=== PATIENT | female | born 1990 ===

== ENCOUNTER 2024-12-30 11:39 | Outpatient (REF) | payer MEDICAID, OTHER, SELFPAY ==
--- OUTSIDE RECORDS SUMMARY | 2024-12-30 12:33 | XMS_ITS | Encounter Summary ---
Author Organization [employer] [facility] Address [address] [place] [address] Care Team Providers Care Referral And Information Aide Name Role Phone Unavailable Primary Care Provider Unavailabl e Encounter Details Date Type Department Care Team (Latest Contact Info) Description 12/30/2024 Travel Social History Tobacco Use Types Packs/Day Years Used Date Smoking Tobacco: Never Passive Smoke Exposure: Never Smokeless Tobacco: Never Comments Unknown Sex and Gender Information Value Date Recorded Sex Assigned at Female 10/11/2022 10:39 AM EDT Legal Sex Female 8:40 PM EDT Gender Identity Female 10/11/2022 10:39 AM EDT Sexual Orientation Straight 10/11/2022 10 :39 AM EDT documented as of this encounter Plan of Treatment Not on file documented as of this encounter Visit Diagnoses Not on filedocumented in this encounter
--- OUTSIDE RECORDS SUMMARY | 2024-12-30 12:33 | XMS_ITS | Clinical Summary ---
Author Organization [facility] Address [address] [place] [address] Phone Care Team Providers Care Senior National Account Manager Name Role Phone Unavailable Primary Care Provider Unavailabl e Social History Tobacco Use Types Packs/Day Years Used Date Smoking Tobacco: Never Assessed Comments Unknown Sex and Gender Information Value Date Recorded Sex Assigned at Not on file Legal Sex Female 1:56 PM EST Gender Identity Not on file Sexual Orientation Not on file Plan of Treatment Not on file Medical Devices Not on file Additional Source Comments The information contained in this document represents components of the legal health record. It is not the complete legal health record.[facility]
[2024-12-30 13:24] LABS: Hematocrit 21.3 % (37.0-47.0); Imm Gran Abs Auto 0.02 X10*3/uL (0.00-0.03); Imm Gran Pct Auto 0.3 % (0.0-0.4); Lymphocytes Absolute Auto 1.6 X10*3/uL (1.2-4.9); MANUAL DIFF FLAG SCAN; Mean Corpuscular HGB Conc 25.4 g/dl (31.0-35.0); Mean Corpuscular Hemoglobin 14.1 pg (27.0-33.0); NRBC Abs Auto 0.020 X10*3/uL (0.0-0.012); NRBC Pct Auto 0.3 /100WBC (0.0-0.2); PLT CLUMP 1; Red Blood Count 3.83 X10*6/uL (4.20-5.50); SCAN SMEAR FLAG 1
[2024-12-30 13:30] LABS: Hemoglobin 5.4 g/dl (12.0-16.0); Mean Corpuscular Volume 55.6 fL (80.0-98.0)
[2024-12-30 13:44] LABS: Platelet Count 386 X10*3/uL (160-400); White Blood Count 6.7 X10*3/uL (4.8-10.8)
[2024-12-30 14:23] LABS: Alanine Aminotransferase 11 U/L (0-31); Albumin Level 4.3 g/dL (3.5-5.0); Alkaline Phosphatase 101 U/L (39-117); Amylase 26 U/L (28-100); Anion Gap 10 (12-20); Aspartate Amino Transferase 16 U/L (5-31); Blood Urea Nitrogen 5 mg/dL (9-16); Calcium 10.2 mg/dL (8.4-10.2); Carbon Dioxide 22 mmol/L (22-29); Chloride 109 mmol/L (96-108); Estimated Glomerular Filt Rate > 60; Lipase 19 U/L (8-78); Potassium 4.2 mmol/L (3.3-5.1); Sodium 137 mmol/L (135-145); Total Protein 7.2 g/dL (6.5-8.0)
== END 2024-12-30 11:40 | disposition home or self-care (01) ==
LOC: HO.HHCL 11:39
PROVIDERS: PCP Family Medicine; Visit Provider Family Medicine
DX: R19.01 Right upper quadrant abdominal swelling, mass and lump (principal); D64.9 Anemia, unspecified
CPT/HCPCS: 36415; 80048; 80076; 82150; 83690; 85025

== ENCOUNTER 2024-12-30 13:58 | Outpatient (REF) | payer MEDICAID, OTHER, SELFPAY ==
--- NOTE | ~2024-12-30 | US_ITS ---
EXAMINATION: US ABDOMEN LIMITED HISTORY: 5cm firm, nonmobile, painful mass in lateral RUQ TECHNIQUE: Real-time grayscale ultrasound imaging of the right upper quadrant was performed and images were reviewed. COMPARISON: There are no prior studies available for comparison. FINDINGS: Sonographic examination of the right lateral abdomen was performed. No abdominal wall mass is identified. Incidental note is made of cholelithiasis. US/US abdomen limited IMPRESSION: No sonographic abnormality is seen to correspond to a right abdominal wall mass. Electronically signed by: Mike Moreno MD 12/30/2024 02:50 PM EDT
== END 2024-12-30 13:59 | disposition home or self-care (01) ==
LOC: HO.US 13:58
PROVIDERS: Visit Provider Family Medicine
DX: R19.01 Right upper quadrant abdominal swelling, mass and lump (principal); D64.9 Anemia, unspecified
CPT/HCPCS: 76705

== ENCOUNTER → 2024-12-30 14:06 | Outpatient (BNV) | payer MEDICAID, SELFPAY | PROVIDERS: Visit Provider Radiology Diagnostic Radiology | DX: R10.11 Right upper quadrant pain (principal) | CPT/HCPCS: 76705 ==

== ENCOUNTER 2024-12-30 14:26 | Emergency (ER) | payer MEDICAID, OTHER, SELFPAY ==
[2024-12-30] VITALS (11 sets, daily range): BP systolic 100–119; BP diastolic 45–70; PULSE 69–81; RESP 10–20; TEMP 36.7–37.2; O2SAT 99–100; BMI 28.3
--- NOTE | 2024-12-30 14:43 | ED_ITS ---
HPI - Recheck/Abnormal Lab/Rx General Chief Complaint: General Medical Stated Complaint: Critical lab result, sent by Time Seen by Provider: 12/30/24 16:34 Source: patient Mode of arrival: ambulatory Limitations: no limitations History of Present Illness ED Provider: HPI narrative: Patient has been feeling weak and dizzy short of breath on exertion fatigue for last few months was [facility] today noticed to have hemoglobin of 5.4 had a near-syncope episode does have menstruation sometimes heavy lasting for 2- 3 days no melena no ulcers Related Data Previous Rx's ?Medication ?Instructions ?Recorded docusate sodium 100 mg capsule 100 mg PO DAILY PRN con stipation 12/31/24 (Col-Rite) #30 caps ferrous sulfate 325 mg (65 mg 325 mg PO BID #60 tabs 0 12/31/24 iron) tablet Allergies Allergy/AdvReac Type Severity Reaction Status Date / Time No Known Allergies Allergy Verified 12/30/24 14:39 Review of Systems 2 Review of Systems: Yes all other systems are reviewed and are negative Physical Exam 2 Vital Signs: Vital Signs: Last Vital Signs Temp 98.2 F 12/31/24 00:36 Pulse 73 12/31/24 00:36 Resp 21 H 12/31/24 00:36 BP 102/50 L 12/31/24 00:36 Pulse Ox 100 12/31/24 00:36 O2 Del Method Room Air 12/31/24 00:36 BMI result Body Mass Index 28.3 Appearance: Alert. Oriented X3. No acute distress. Eyes: Pallor+++ or icterus ENT: Pharynx normal Oral Mucosa moist tympanic membrane intact no erythema, Neck: Normal inspection. Neck supple. CVS: Normal heart rate and rhythm. Pulses normal. Respiratory: No respiratory distress. Equal air entry bilateral, no wheezing/rales/rhonchi Abd: soft, not tender Skin: Skin warm and dry. Normal skin color. Normal skin turgor. Extremities: No lower extremity edema, no calf tenderness Neuro: Oriented X 3. Course Course Course Narrative: This is a Rapid Medical Examination (RME) performed by Ricky Ragsdale PA-C in triage. Full HPI, ROS, assessment and treatment plan per primary provider in the Main ED. 34 yo Salvadorean speaking female presents to the ER from Ultrasound Department for evaluation of abnormal labs done on outpatient blood work done today at [facility]. She initially went there for RUQ pain x3 days, headaches and dizziness for the last 1 month. she has passed out 3 times in the last 1 month, last was 9 days ago. Also has had unintentional weight loss of 30+lbs, no appetite and forgets to eat. sent to U/S for abd U/S when labs came back with H/H 5.4/21.3. hx anemia but has never required transfusion, was when she was . LMP 716 and was light, only lasting 2 days. no history of heavy menstrual cycles, melena or hematochezia. appears pale. +RUQ tenderness on exam. Plan: repeat labs, check iron panel, T&S. abd U/S completed, will get radiology to read today Medications Administered Discontinued Medications Generic Name Dose Route Start Last Admin Trade Name Caron PRN Reason Stop Dose Admin Iron Dextran 25 mg/ Sodium 50.5 mls @ 202 mls/hr 12/30/24 16:56 12/30/24 18:44 Chloride IV 12/30/24 16:57 Infused ONCE ONE Infusion Medical Decision Making Medical Decision Making [facility] Narrative: Patient has significant anemia with iron-deficiency likely heavy menstruation cause for blood loss was given 2 units of PRBC and iron dextran hemoglobin improved to 7.5 patient is feeling much better will discharge patient home advised to follow up with PCP as scheduled for further evaluation Lab Data [facility] Lab Attestation statement: I reviewed the patient's lab results. 12/30/24 23:24 12/30/24 15:02 Labs: Lab Results 12/30/24 12/30/24 12/30/24 Range/Units 15:02 18:35 23:24 WBC 6.9 (4.8-10.8) X10*3/uL RBC 3.58 L (4.20-5.50) X10*6/uL Hgb 5.1 L* 7.5 L D (12.0-16.0) g/dl Hct 19.5 L* 25.7 L D (37.0-47.0) % MCV 54.5 L (80.0-98.0) fL MCH 14.2 L (27.0-33.0) pg MCHC 26.2 L (31.0-35.0) g/dl RDW 23.2 H (11.0-16.0) % Plt Count 322 (160-400) X10*3/uL MPV Not Reportable Immature Gran % (Auto) 0.3 (0.0-0.4) % Neut % (Auto) 57.2 (45-73) % Lymph % (Auto) 30.7 (20-40) % [place] % (Auto) 9.8 (2-11) % Eos % (Auto) 1.6 (0-4) % Baso % (Auto) 0.4 (0-2) % Lymph # (Auto) 2.1 (1.2-4.9) X10*3/uL [place] # (Auto) 0.7 (0.1-1.2) X10*3/uL Eos # (Auto) 0.1 (0.0-0.4) X10*3/uL Baso # (Auto) 0.0 (0.0-0.2) X10*3/uL Abs Immat Gran (auto) 0.02 (0.00-0.03) X10*3/uL Absolute Neuts (auto) 3.9 (2.0-8.3) x10*3/uL Absolute Nucleated RBC 0.020 H (0.0-0.012) X10*3/uL Nucleated RBC % (auto) 0.3 H (0.0-0.2) /100WBC Sodium 137 (135-145) mmol/L Potassium 3.8 (3.3-5.1) mmol/L Chloride 108 (96-108) mmol/L Carbon Dioxide 24 (22-29) mmol/L Anion Gap 9 L (12-20) BUN 5 L (9-16) mg/dL Creatinine 0.54 (0.5-1.4) mg/dL Estim Creat Clear Calc 145.4 Estimated GFR > 60 Random Glucose 87 (60-115) mg/dL Calcium 10.2 (8.4-10.2) mg/dL Magnesium 2.1 (1.6-2.6) mg/dL Iron 7 L (30-160) mcg/dL TIBC 349 (228-428) mcg/dL % Saturation 2 L (15-50) % Unsat Iron Binding 342 ug/dL Total Bilirubin 0.6 (0.0-1.0) mg/dL Direct Bilirubin 0.2 (0.0-0.5) mg/dL AST 15 (5-31) U/L ALT 10 (0-31) U/L Alkaline Phosphatase 102 (39-117) U/L Total Protein 7.1 (6.5-8.0) g/dL Albumin 4.2 (3.5-5.0) g/dL Urine Color Yellow Urine Appearance Clear Urine pH 7.5 (5.0-9.0) Ur Specific [place] <= 1.005 (1.005-1.025) Urine Protein Negative (Neg-Trace) mg/dL Urine Glucose (UA) Negative (Negative) mg/dL Urine Ketones Negative (Negative) mg/dL Urine Blood Negative (Negative) Urine Nitrite Negative (Negative) Ur Leukocyte Esterase Large (3+) H (Negative) Urine RBC 0-2 (0-2) /HPF Urine WBC >50 H (0-5) /HPF Ur Squamous Epith Cells 6-10 (0-2) /HPF Urine Bacteria Trace (None Seen) Hyaline Casts 0-2 (0-2) /LPF Urine Test NEGATIVE (NEGATIVE) Blood Type A Positive Antibody Screen NEGATIVE Crossmatch See Detail Discharge Plan Discharge Clinical Impression: Iron (Fe) deficiency anemia Patient Disposition: Home, Self-Care Instructions: Iron Rich Diet (ED), Anemia (ED) Additional Instructions: Take start start taking iron pills as prescribed See your PCP as scheduled for further management Prescriptions: New ferrous sulfate 325 mg (65 mg iron) tablet 325 mg PO BID Qty: 60 0RF docusate sodium [Col-Rite] 100 mg capsule 100 mg PO DAILY PRN (Reason: constipation) Qty: 30 0RF Interventions: ED Discharge Assessment Last Done: 12/31/24 00:36 Discharge Date/Time: 12/31/24 00:36 Print Language: Salvadorean
--- NOTE | 2024-12-30 14:51 | ECG_ITS ---
Test Reason : SYNCOPE Blood Pressure : */* mmHG Vent. Rate : 67 BPM Atrial Rate : 67 BPM P-R Int : 144 ms QRS Dur : 84 ms QT Int : 366 ms P-R-T Axes : 64 44 25 degrees QTcB Int : 386 ms Normal sinus rhythm Normal ECG No previous ECGs available Referred By: Annabella Ragsdale Electronically Signed By: SARA GARCIA
[2024-12-30 15:11] LABS: Imm Gran Abs Auto 0.02 X10*3/uL (0.00-0.03); Imm Gran Pct Auto 0.3 % (0.0-0.4); Lymphocytes Absolute Auto 2.1 X10*3/uL (1.2-4.9); MANUAL DIFF FLAG SCAN; Mean Corpuscular HGB Conc 26.2 g/dl (31.0-35.0); Mean Corpuscular Hemoglobin 14.2 pg (27.0-33.0); NRBC Abs Auto 0.020 X10*3/uL (0.0-0.012); NRBC Pct Auto 0.3 /100WBC (0.0-0.2); Platelet Count 322 X10*3/uL (160-400); Red Blood Count 3.58 X10*6/uL (4.20-5.50); SCAN SMEAR FLAG 1; White Blood Count 6.9 X10*3/uL (4.8-10.8)
[2024-12-30 15:16] LABS: Mean Corpuscular Volume 54.5 fL (80.0-98.0)
[2024-12-30 15:18] LABS: Hemoglobin 5.1 g/dl (12.0-16.0); PLT ABN DIST 1
[2024-12-30 15:19] LABS: Hematocrit 19.5 % (37.0-47.0)
[2024-12-30 15:24] LABS: Alanine Aminotransferase 10 U/L (0-31); Albumin Level 4.2 g/dL (3.5-5.0); Alkaline Phosphatase 102 U/L (39-117); Anion Gap 9 (12-20); Aspartate Amino Transferase 15 U/L (5-31); Blood Urea Nitrogen 5 mg/dL (9-16); Calcium 10.2 mg/dL (8.4-10.2); Carbon Dioxide 24 mmol/L (22-29); Chloride 108 mmol/L (96-108); Creatinine Clr Calc Pharmacy 145.4; Estimated Glomerular Filt Rate > 60; Iron 7 mcg/dL (30-160); Magnesium 2.1 mg/dL (1.6-2.6); Percent Iron Saturation 2 % (15-50); Potassium 3.8 mmol/L (3.3-5.1); Sodium 137 mmol/L (135-145); Total Iron Binding Capacity 349 mcg/dL (228-428); Total Protein 7.1 g/dL (6.5-8.0); Unsaturated Iron Binding 342 ug/dL
[2024-12-30] MEDS: Iron Dextran Complex 25 MG in 0.9 % Sodium Chloride 50 ML 202 MG IV (18:00)
[2024-12-30 18:42] LABS: Appearance Urine Clear; Glucose Urine UA Negative (Negative); PH 7.5 (5.0-9.0); Specific Gravity - Urine <= 1.005 (1.005-1.025); UMIC TRIGGER UACC YES
[2024-12-30 18:43] LABS: UPreg QC Valid YES
[2024-12-30 19:02] LABS: UACC Culture Trigger YES
[2024-12-30 23:29] LABS: Hematocrit 25.7 % (37.0-47.0)
[2024-12-30 23:31] LABS: Hemoglobin 7.5 g/dl (12.0-16.0)
[2024-12-31 00:27] VITALS: BP 102/50; PULSE 73; RESP 21; TEMP 36.8; O2SAT 100
[2024-12-31 00:36] VITALS: BP 102/50; PULSE 73; RESP 21; TEMP 36.8; O2SAT 100
== END 2024-12-31 00:36 | disposition home or self-care (01) ==
PROVIDERS: Physician Assistant; Emergency Provider Internal Medicine
DX: D50.9 Iron deficiency anemia, unspecified (principal); R06.02 Shortness of breath; R55 Syncope and collapse
CPT/HCPCS: 36415; 36430; 80048; 80076; 81001; 81025; 83540; 83735; 85014; 85018; 85025; 86850; 86900; 86901; 86923; 87086; 93005; 96365; 99285; J1750; P9016

== ENCOUNTER → 2024-12-30 14:51 | Outpatient (BNV) | payer MEDICAID, SELFPAY | PROVIDERS: Emergency Provider Internal Medicine; Visit Provider Internal Medicine | DX: R55 Syncope and collapse (principal) | CPT/HCPCS: 93010 ==

== ENCOUNTER 2025-01-09 14:14 | Outpatient (REF) | payer MEDICAID, OTHER, SELFPAY ==
--- NOTE | ~2025-01-09 | CT_ITS ---
CLINICAL HISTORY: PAPABLE MASS ON RUQ W SEVERE ANEMIA CT abdomen and pelvis with contrast Comparison: None provided Findings: No consolidation or effusion. Couple gallstones are seen measuring up to 1.6 cm in a normal-sized gallbladder. The liver, pancreas, spleen, bilateral adrenal glands, and bilateral kidneys appear within normal limits. There is no evidence of bowel obstruction. The appendix appears normal. There is no pneumoperitoneum or ascites. The urinary bladder appears normal. There is no adenopathy. Trace ascites is seen in the cul-de-sac. No abdominal wall mass is identified. Left L5 pars defect is seen without spondylolisthesis. No acute osseous abnormality is identified. No aggressive lytic or blastic lesion seen. 11.3 x 5.4 x 4.2 cm intramuscular lipoma containing some internal striations is seen in the right anterior thigh. IMPRESSION: 1. Cholelithiasis. 2. Trace ascites in the cul-de-sac. 3. Left L5 pars defect without spondylolisthesis. 4. 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 Low-grade liposarcoma can not be excluded. This document has been electronically signed by: Aliya Guerrero on 01/12/2025 09:12:48
--- OUTSIDE RECORDS SUMMARY | 2025-01-09 14:16 | XMS_ITS | Encounter Summary ---
Author Organization [employer] Address [address] [place] [address] Care Team Providers Care Tugboat Dispatcher Name Role Phone Unavailable Primary Care Provider Unavailabl e Reason for Visit * Reason Onset Date Comments Appointment Confirmation 12/30/2024 Encounter Details Date Type Department Care Team ([facility] st Contact Info) Description 12/30/2024 Telephone [facility] [address] [place], [place] [id number] Vashti Arroyo MD [address] [place], [place] [phone] Appointment Confirmation Social History Tobacco Use Types Packs/Day Years Used Date Smoking Tobacco: Never Passive Smoke Exposure: Never Smokeless Tobacco: Never Comments Unknown Sex and Gender Information Value Date Recorded Sex Assigned at Female 10/11/2022 10:39 AM EDT Legal Sex Female 8:40 PM EDT Gender Identity Female 10/11/2022 10:39 AM EDT Sexual Orientation Straight 10/11/2022 10 :39 AM EDT documented as of this encounter Miscellaneous Notes * Telephone Encounter - Oriana Jones RN - 01/07/2025 10:06 AM EDT TC placed to the pt with a spanish interpreter to inform of pt two appointments upcoming on SundayJanuary 09. The pt was first informed of SURVEYING TEACHER appt scheduled with Chandu Carlos on the [facility] for [address] STAT CT scan scheduled on the same day 01/09 at 230 at [facility]. Pt was informed of theimportance of attending both appt and that the result of the CT scan will be followed up on CASH. Pt stated understanding and had no further questions at this time. * Telephone Encounter - Oriana Jones RN - 01/01/2025 11:35 AM EDT TC placed to the pt with [facility] official court interpreter #[id number] to inform of the instructions below. Pt was instructed to make sure pt phone is available and answers all incoming calls as the provider ordered a STATCT scan and referred the pt to both hematology and GI due to reported symptoms at the [facility] on 12/30. RN stressed the importance of following up and attending all these appointments and to call back the office if she does not hear back in the next two weeks. The pt was also reminded up SURVEYING TEACHER appt with on 01/09 with Chandu Carlos at 1015. Provider Message And left message. I am trying to set up a stat CT scan but need to know she can make it and will answer her phone for the appointment. Please try to call again to Please let her know of 1) new PCP apt 2) I referred her to a blood doctor and stomach doctor because I am worried about her low blood level and stomach pain. These are very important and will be in [place]. 3) I ordered a CT scan of her abdomen. If we can make it an urgent CT, will she be able to answer her phone so we can get her in in the next few days? Please send her a letter to call us CASH and keep trying her phone a few times a day. Thank you. * Telephone Encounter - Vashti Arroyo MD - 01/01/2025 10:47 AM EDT I called pt again 01/01/2510:47 AM And left message. I am trying to set up a stat CT scan but need to know she can make it and will answer her phone for the appointment. Please try to call again to Please let her know of 1) new PCP apt 2) I referred her to a blood doctor and stomach doctor because I am worried about her low blood level and stomach pain. These are very important and will be in [place]. 3) I ordered a CT scan of her abdomen. If we can make it an urgent CT, will she be able to answer her phone so we can get her in in the next few days? Please send her a letter to call us CASH and keep trying her phone a few times a day. Thank you. * Telephone Encounter - Vashti Hull RN - 12/31/2024 2:02 PM EDT TC to pt to inform of orders below and new patient appt. Pt verbalized understanding of informationand agreement with plan. * Telephone Encounter - Vashti Hull RN - 12/31/2024 10:19 AM EDT TC to pt to inform of provider message. BLS educational sign language interpreter services utilized. No answer. VM left instructing pt to return call to office. * Telephone Encounter - Vashti Arroyo MD - 12/30/2024 4:45 PM EDT Please call for status check on 12/31/24. Please let her know of 1) new PCP apt 2) I referred her to a blood doctor and stomach doctor because I am worried about her low blood level and stomach pain 3) I ordered a CT scan of her abdomen. Please call us if she does not hear from them in the next week about appointment. Thank you. documented in this encounter Plan of Treatment Not on file documented as of this encounter Visit Diagnoses Not on filedocumented in this encounter
--- OUTSIDE RECORDS SUMMARY | 2025-01-09 14:16 | XMS_ITS | Clinical Summary ---
Author Organization [facility] Address [address] [place] [address] Phone Care Team Providers Care Building Insulation Supervisor Name Role Phone Unavailable Primary Care Provider [...] It is not the complete legal health record.[facility]
[2025-01-09] MEDS: iohexoL 350 MG/ML 100 ML INFUS..BTL IV (17:42)
[2025-01-09] MEDS: Barium Sulfate Oral (Berry) 450 ML ORAL.SUSP PO (17:44)
== END 2025-01-09 14:15 | disposition home or self-care (01) ==
LOC: HO.CT 14:14
PROVIDERS: Visit Provider Family Medicine
DX: R19.01 Right upper quadrant abdominal swelling, mass and lump (principal); D64.9 Anemia, unspecified; R63.4 Abnormal weight loss
CPT/HCPCS: 74177; Q9967

== ENCOUNTER → 2025-01-09 16:57 | Outpatient (BNV) | payer SELFPAY | PROVIDERS: Visit Provider Radiology Vascular & Interventional Radiology | DX: R19.01 Right upper quadrant abdominal swelling, mass and lump (principal); D64.9 Anemia, unspecified | CPT/HCPCS: 74177 ==

== ENCOUNTER 2025-04-15 08:49 | Outpatient (AMB) | payer OTHER, SELFPAY ==
--- NOTE | 2025-04-15 08:51 | A.OFFVIS_ITS ---
Vital Signs 04/15/25 08:57 Height 5 ft 2 in Weight 157 lb BMI 28.7 BP 108/52 L Blood Pressure Location Lt brachial Position Sitting Pulse 75 Intake Visit Reasons: malignant neoplasm ascending colon Intake Note: Patient presents for an assessment for malignant neoplasm ascending colon. Pt c/o; pain. 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 She had a colonoscopy done [facility] last January, and this showed a large fungating mass in the proximal ascending colon. This was an adenocarcinoma. She also had a mass in the splenic flexure. 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 They were told that she could not be seen in [facility]. She had been therefore having progressive pain on the right side of her abdomen along with weight loss. She has had difficulty ambulating now. She has had poor oral intake. According to her significant other, she has lost about 20 lb of weight the past 2 months. She denies any significant medical problems otherwise. She has had C-sections x2. She has a maternal aunt who was diagnosed to have colon cancer at age of 47. I had seen her in the office earlier today. She appeared to be in pain and very weak so I brought her to the emergency room. [facility] Medical History Colon cancer Surgical History History of esophagogastroduodenoscopy (EGD) H/O colonoscopy Social History Alcohol intake: never Patient Tobacco Use Status: Never used Tobacco Review of Systems Const Reports anorexia, Denies chills, Denies fever(s), Reports weakness and Reports weight loss Card Reports chest pain and Reports chest pain with activity Resp Reports cough GI Reports abdominal pain and Reports constipation Neuro Reports weakness Physical Exam Vital Signs: Last Vital Signs Pulse 75 04/15/25 08:57 BP 108/52 L 04/15/25 08:57 BMI result Body Mass Index 28.7 Const Other: Appears weak General: comfortable and no acute distress Resp Effort & Inspection: normal respiratory effort Cardio Rate: regular rate GI Palpation (GI): Soft to palpation and Tenderness to palpation present (GI) (tender on the entire right side with question of a vague mass) Assessment & Plan Assessment & Plan (1) Colon cancer: Code(s): C18.9 - Malignant neoplasm of colon, unspecified Category: Medical Plan: She had a colonoscopy done in January, in [facility] showing this large fungating mass in the proximal right colon. Biopsies of this showed an invasive adenocarcinoma. There was also note of a large mass in the splenic flexure was tubulovillous on biopsy. She has been lost to follow up because of what her significant other described as health insurance issues. They were told that she could not be seen in [facility] anymore after colonoscopy. They were also told that he could not be seen at [facility]. [facility] for the past 2 months and the pain has been progressive on the right side of her abdomen. She also has been progressively getting weaker. Has had difficulty ambulating now because of weakness and pain She has had chronic constipation. In view of her ongoing progressive issues, I brought her to the emergency room to be worked up. The CAT scan in the ED shows a very large mass encompassing most of the right colon all the way to the hepatic flexure. Furthermore, there seems to be infiltrating posteriorly into the retroperitoneum as well as the mesentery. In view of the anticipated extensive dissection to achieve R0 margins, I have recommended for her to a tertiary center. She also has a 2nd lesion in the splenic flexure says she we will need to have this resected as well. I discussed this with the significant other at bedside. I told him that I would recommend them being transferred today as they have already have been lost to follow up in many hospitals. She had been seen by multiple doctors already in the past without any definitive plan. I spent an hour evaluating this patient and coordinating for her care in the emergency room. Coding Level of Care Code New Pt Level 4 (62560) Diagnoses Colon cancer C18.9
[2025-04-15 08:57] VITALS: BP 108/52; PULSE 75; BMI 28.7
== END 2025-04-15 09:38 | disposition home or self-care (01) ==
LOC: HO.HGS 08:50
PROVIDERS: Visit Provider Surgery
DX: C18.9 Malignant neoplasm of colon, unspecified (principal)
CPT/HCPCS: 99204

== ENCOUNTER 2025-04-15 09:36 | Emergency (ER) | payer OTHER, SELFPAY ==
--- NOTE | ~2025-04-15 | CT_ITS ---
EXAMINATION: CT ABDOMEN PELVIS WITH IV CONTRAST HISTORY: Abdominal pain, history of colon cancer COMPARISON: Comparison is made with the prior examination dated 01/09/2025. TECHNIQUE: CT scan of the abdomen and pelvis was performed following administration of 85 mL Omnipaque 350 using standard departmental protocol. Coronal and sagittal reformatted images were generated and reviewed. Oral contrast material was not administered at the request of the referring physician. This CT exam was performed with one or more of the following dose reduction techniques: automated exposure control, adjustment of the mA and/or kV according to patient size, use of iterative reconstruction technique. DLP: 535 mGy-cm FINDINGS: LOWER CHEST: The visualized lung bases are clear. There is no pleural effusion. CARDIOVASCULATURE: The heart is normal in size. There is no pericardial effusion. LIVER: The liver is normal in size and contour. No liver mass is identified. The hepatic and portal veins are patent. GALLBLADDER / BILE DUCTS: There is cholelithiasis. There is no intra or extrahepatic biliary ductal dilatation. SPLEEN: The spleen is normal in size. No focal splenic lesion is identified. PANCREAS: The pancreas is unremarkable in appearance. ADRENAL GLANDS: Within normal limits. KIDNEYS/RETROPERITONEUM: No renal calculi are identified. There is no hydronephrosis. There are probable subcentimeter cyst at the lower pole of the right kidney. LYMPH NODES: No abdominal or pelvic lymphadenopathy. VASCULATURE: The abdominal aorta is normal in caliber. MESENTERY/PERITONEUM: There is a small amount of free fluid in the cul-de-sac. No masses. There is no free intraperitoneal gas. STOMACH: The stomach is collapsed, limiting evaluation. SMALL BOWEL: The small bowel is normal in caliber. COLON: There is a heterogeneous soft tissue mass of the ascending colon extending from just above the cecum to the hepatic flexure. There is infiltration and spiculation of the mesenteric fat surrounding the ascending colon, suggestive of transmural spread. There are enlarged pericolonic lymph nodes in this region measuring up to 9 mm. APPENDIX: Normal. URINARY BLADDER/PELVIC ORGANS: The urinary bladder is unremarkable. The uterus and ovaries are unremarkable. BONES / SOFT TISSUES: Again seen is a lipomatous mass of the anterior proximal right thigh. CT/CT abdomen pelvis w IV con IMPRESSION: Heterogeneous soft tissue mass of the ascending colon extending from just above the cecum to the hepatic flexure, consistent with the patient's known mass. Infiltration and spiculation of the surrounding mesenteric fat is suggestive of transmural spread of disease. There are associated enlarged pericolonic lymph nodes. Electronically signed by: Mike Moreno MD 04/15/2025 11:08 AM LYUBOV
[2025-04-15 09:40] VITALS: BP 109/55; PULSE 74; RESP 18; TEMP 36.9; O2SAT 100; BMI 26.1
[2025-04-15 09:55] LABS: MANUAL DIFF FLAG NO
[2025-04-15 09:57] LABS: Hematocrit 26.6 % (37.0-47.0); Hemoglobin 7.5 g/dl (12.0-16.0); Imm Gran Abs Auto 0.02 X10*3/uL (0.00-0.03); Imm Gran Pct Auto 0.3 % (0.0-0.4); Lymphocytes Absolute Auto 1.5 X10*3/uL (1.2-4.9); Mean Corpuscular HGB Conc 28.2 g/dl (31.0-35.0); Mean Corpuscular Hemoglobin 19.4 pg (27.0-33.0); Mean Corpuscular Volume 68.7 fL (80.0-98.0); NRBC Abs Auto 0.000 X10*3/uL (0.0-0.012); NRBC Pct Auto 0.0 /100WBC (0.0-0.2); Platelet Count 479 X10*3/uL (160-400); Red Blood Count 3.87 X10*6/uL (4.20-5.50); White Blood Count 7.0 X10*3/uL (4.8-10.8)
[2025-04-15 10:00] VITALS: BP 110/62; PULSE 72; RESP 20; O2SAT 97
[2025-04-15 10:18] LABS: Alanine Aminotransferase 8 U/L (0-31); Albumin Level 3.6 g/dL (3.5-5.0); Alkaline Phosphatase 106 U/L (39-117); Anion Gap 9 (12-20); Aspartate Amino Transferase 16 U/L (5-31); Blood Urea Nitrogen 4 mg/dL (9-16); Calcium 10.1 mg/dL (8.4-10.2); Carbon Dioxide 25 mmol/L (22-29); Chloride 108 mmol/L (96-108); Creatinine Clr Calc Pharmacy 149.4; Estimated Glomerular Filt Rate > 60; Lipase 21 U/L (8-78); Potassium 4.0 mmol/L (3.3-5.1); Sodium 138 mmol/L (135-145); Total Protein 6.3 g/dL (6.5-8.0)
[2025-04-15] MEDS: iohexoL 350 MG/ML 100 ML INFUS..BTL IV (10:44)
[2025-04-15 11:34] LABS: Appearance Urine Clear; Glucose Urine UA Negative (Negative); PH 5.5 (5.0-9.0); Specific Gravity - Urine >= 1.030 (1.005-1.025)
--- NOTE | 2025-04-15 12:00 | ED.ABDPAIN ---
HPI - Abdominal Pain General Chief Complaint: Abdominal Pain Stated Complaint: sent here from med office Time Seen by Provider: 04/15/25 09:58 Source: patient and family Mode of arrival: ambulatory Limitations: no limitations History of Present Illness ED Provider: DR. Thornton HPI narrative: 35-year-old female presented by wheelchair from Dr. Cruz office for further evaluation of abdominal pain and known adenocarcinoma of colon cancer with possible transfer to [place]. Patient was diagnosed via colonoscopy with adenocarcinoma, patient followed at [facility] and [facility] with delay treatment secondary to health insurance issue returned today to Dr. Cruz who bring her to the ED to get further study and potential a transferred to [place] for advanced colon cancer disease. Related Data Home Medications ?Medication ?Instructions ?Recorded ?Confirmed acetaminophen 500 mg tablet 500 mg PO Q6H PRN pain 04/15/25 omeprazole 40 mg capsule,delayed 40 mg PO DAILY 04/15/25 release Previous Rx's ?Medication ?Instructions ?Recorded docusate sodium 100 mg capsule 100 mg PO DAILY PRN constipation 12/31/24 (Col-Rite) #30 caps ferrous sulfate 325 mg (65 mg 325 mg PO BID #60 tabs 12/31/24 iron) tablet Allergies Allergy/AdvReac Type Severity Reaction Status Date / Time No Known Allergies Allergy Verified 04/15/25 09:41 Review of Systems Review of Systems All other systems are reviewed and are negative Constitutional: Reports as per HPI and Reports no additional constitutional complaints Eyes: Reports as per HPI and Reports no additional eye complaints Reports system reviewed and no additional complaints, except as documented Cardiovascular: Reports as per HPI and Reports no additional cardiovascular complaints Respiratory: Reports as per HPI and Reports no additional respiratory complaints Gastrointestinal: Reports as per HPI and Reports no additional gastrointestinal complaints Genitourinary: Reports no additional female genitourinary complaints Musculoskeletal: Reports no additional musculoskeletal complaints Skin/Breast: Reports system reviewed and no additional complaints, except as docu Psychiatric: Reports no additional psychiatric complaints Endocrine: Reports no additional endocrine complaints Hematologic/Lymphatic: Reports no additional hematologic/lymphatic complaints Allergic/Immunologic: Reports no additional allergic/immunologic complaints Reports system reviewed and no additional complaints, except as documented and Reports Abnormal speech [facility] Past Medical History Medical History Colon cancer Surgical History History of esophagogastroduodenoscopy (EGD) H/O colonoscopy Social History Social History Alcohol intake: never Patient Tobacco Use Status: Never used Tobacco Advance Directives: No Advance Directives Information Provided: Yes Physical Exam ED Vital Signs: Vital Signs - 24 hr 04/15/25 09:40 04/15/25 10:00 04/15/25 12:39 Temperature 98.5 F Pulse Rate 74 72 80 Respiratory Rate 18 20 20 Blood Pressure 109/55 L 110/62 108/72 Pulse Oximetry 100 97 98 Oxygen Delivery Method Room Air Room Air Room Air BMI result Body Mass Index 26.1 Vital signs have been reviewed and appear to be correct. Blood pressure elevated. Heart rate normal. Respiratory rate normal. Temperature normal. Oxygen saturation normal. Appearance: Alert. Oriented X3. No acute distress. Head: Normal external exam. Normocephalic. Atraumatic. No Kerr signs noted. No raccoon eyes noted Eyes: PERRLA. EOMI. Conjunctiva and sclera normal. Eyelids normal. ENT: TM's Normal. Pharynx normal. Uvula midline. Moist mucous membranes. No trismus noted. No drooling noted. No muffled voice noted. Neck: Normal inspection. Neck supple. FROM. No adenopathy. Thyroid Normal. No meningeal signs. No neck mass noted. CVS: Normal heart rate and rhythm. Heart sound normal. No murmurs noted. Pulses normal throughout. Respiratory: No respiratory distress. Painless inspiration. Breath sounds normal. No wheezes/rales/rhonchi noted. Chest nontender. No accessory muscle usage noted or decreased air movement noted. Abdomen: Soft, right lower quadrant abdominal tenderness, Bowel sounds normal in all 4 quadrants. No distention noted. No organomegaly noted. No visible injury noted. Back: No CVA tenderness. Full range of motion noted. Skin: Skin warm and dry. Normal skin color. Normal skin turgor. No rashes/lesions/lacerations noted. Extremities: No lower extremity edema. Extremities exhibit normal range of motion. Extremities nontender. Neuro: Oriented X 3. Cranial nerve exam: II-XII are grossly intact No motor deficit. No sensory deficit. Reflexes normal. Course Reevaluation(s) Reevaluation #1: 35-year-old female unfortunately diagnosed with adenocarcinoma of the right colon 4 months ago patient did not receive actual treatment for the cancer since was diagnosed as per patient secondary to health insurance issues, case was discussed with Dr. Crzu who recommended to transfer the patient out to a tertiary facility for a higher level of care, therefore the case was discussed with Dr. Agarwal and accepted the patient to [facility]. Case discussed with the patient and family agreed to be transferred and start the treatment. Time: 13:19 Medical Decision Making Differential Diagnosis Differential Diagnoses: The differential diagnosis associated with the presentation includes (Colon cancer, acute appendicitis, acute colitis, acute diverticulitis, severe anemia, electrolyte derangement.) Admission/Observation Consideration of admission/observation: Escalation of care including admission/observation considered Consult Healthcare Provider Management of the patient was discussed with: Residential Subcontractor (Dr. Agarwal) Lab Data MDM Lab Attestation statement: I reviewed the patient's lab results. 04/15/25 09:50 04/15/25 09:50 Labs: Lab Results 04/15/25 04/15/25 Range/Units 09:50 11:18 WBC 7.0 (4.8-10.8) X10*3/uL RBC 3.87 L (4.20-5.50) X10*6/uL Hgb 7.5 L (12.0-16.0) g/dl Hct 26.6 L (37.0-47.0) % MCV 68.7 L (80.0-98.0) fL MCH 19.4 L (27.0-33.0) pg MCHC 28.2 L (31.0-35.0) g/dl RDW 18.6 H (11.0-16.0) % Plt Count 479 H D (160-400) X10*3/uL MPV 9.3 L (9.4-12.3) fL Immature Gran % (Auto) 0.3 (0.0-0.4) % Neut % (Auto) 66.2 (45-73) % Lymph % (Auto) 21.3 (20-40) % [place] % (Auto) 9.4 (2-11) % Eos % (Auto) 2.4 (0-4) % Baso % (Auto) 0.4 (0-2) % Lymph # (Auto) 1.5 (1.2-4.9) X10*3/uL [place] # (Auto) 0.7 (0.1-1.2) X10*3/uL Eos # (Auto) 0.2 (0.0-0.4) X10*3/uL Baso # (Auto) 0.0 (0.0-0.2) X10*3/uL Abs Immat Gran (auto) 0.02 (0.00-0.03) X10*3/uL Absolute Neuts (auto) 4.6 (2.0-8.3) x10*3/uL Absolute Nucleated RBC 0.000 (0.0-0.012) X10*3/uL Nucleated RBC % (auto) 0.0 (0.0-0.2) /100WBC Sodium 138 (135-145) mmol/L Potassium 4.0 (3.3-5.1) mmol/L Chloride 108 (96-108) mmol/L Carbon Dioxide 25 (22-29) mmol/L Anion Gap 9 L (12-20) BUN 4 L (9-16) mg/dL Creatinine 0.52 (0.5-1.4) mg/dL Estim Creat Clear Calc 149.4 Estimated GFR > 60 Random Glucose 89 (60-115) mg/dL Calcium 10.1 (8.4-10.2) mg/dL Total Bilirubin 0.3 (0.0-1.0) mg/dL Direct Bilirubin 0.1 (0.0-0.5) mg/dL AST 16 (5-31) U/L ALT 8 (0-31) U/L Alkaline Phosphatase 106 (39-117) U/L Total Protein 6.3 L (6.5-8.0) g/dL Albumin 3.6 (3.5-5.0) g/dL Lipase 21 (8-78) U/L Beta HCG, Quant < 2 mIU/mL Urine Color Yellow Urine Appearance Clear Urine pH 5.5 (5.0-9.0) Ur Specific [place] >= 1.030 H (1.005-1.025) Urine Protein Negative (Neg-Trace) mg/dL Urine Glucose (UA) Negative (Negative) mg/dL Urine Ketones Negative (Negative) mg/dL Urine Blood Negative (Negative) Urine Nitrite Negative (Negative) Ur Leukocyte Esterase Negative (Negative) Independent Interpretation I performed an independent interpretation of an: CT Scan (Abdomen and pelvis:Heterogeneous soft tissue mass of the ascending colon extending from just above the cecum to the hepatic flexure, consistent with the patient's known mass. Infiltration and spiculation of the surrounding mesenteric fat is suggestive of transmural spread of disease. There are a) Radiology Impression Discussion of test interpretation with radiology: I have reviewed the radiologist's reading. Medications Administered Discontinued Medications Generic Name Dose Route Start Last Admin Trade Name Freq PRN Reason Stop Dose Admin Iohexol 100 ml 04/15/25 10:44 04/15/25 10:44 Iohexol 350 Mg/Ml 100 Ml Infus..Btl IV 04/15/25 10:45 85 ml ONCE ONE Administration Discharge Plan Discharge Clinical Impression: Colon cancer, Abdominal pain Patient Disposition: [facility] Transfer Details: [facility], accepting physician is Dr. Agarwal Prescriptions: No Action ferrous sulfate 325 mg (65 mg iron) tablet 325 mg PO BID Qty: 60 0RF docusate sodium [Col-Rite] 100 mg capsule 100 mg PO DAILY PRN (Reason: constipation) Qty: 30 0RF omeprazole 40 mg capsule,delayed release(DR/EC) 40 mg PO DAILY acetaminophen 500 mg tablet 500 mg PO Q6H PRN (Reason: pain) Print Language: Sinhala
[2025-04-15 12:39] VITALS: BP 108/72; PULSE 80; RESP 20; O2SAT 98
[2025-04-15 15:23] VITALS: BP 114/66; PULSE 80; RESP 20; O2SAT 96
[2025-04-15 17:07] VITALS: BP 114/66; PULSE 80; RESP 20; TEMP 36.4; O2SAT 96
--- OUTSIDE RECORDS SUMMARY | 2025-04-15 17:58 | XMS_ITS | Encounter Summary ---
Author Organization [facility] Address [address] [place] [id number] Care Team Providers Care Lidder Name Role Phone Unavailable Primary Care Provider Unavailabl e Reason for Visit * Reason Comments Abdominal Pain Abnormal Test Result Encounter Details Date Type Department Care Team (Late st Contact Info) Description 2025 5:58 PM EST - Present Emergency [facility] Emergency Department [address] [place] [address] Social History Tobacco Use Types Packs/Day Years Used Date Smoking Tobacco: Never Assessed Comments Unknown Sex and Gender Information Value Date Recorded Sex Assigned at Female 2025 6:05 PM EST Legal Sex Female 1:09 PM EST Gender Identity Female 2025 6:05 PM EST Sexual Orientation Heterosexual (straight) 04/15 6:05 PM EST documented as of this encounter Last Filed Vital Signs Vital Sign Reading Time Taken Comments Blood Pressure 114/78 2025 5:54 PM EST Pulse 80 2025 5:54 PM EST Temperature 35.8 C (96.5 F) 2025 5:54 PM EST Respiratory Rate 18 2025 5:54 PM EST Oxygen Saturation 96% 2025 5:54 PM EST Inhaled Oxygen Concentration - - Weight - - Height - - Body Mass Index - - documented in this encounter Miscellaneous Notes * ED Front end provider - Sandy Gonzalez PA-C - 2025 7:00 PM EST HPI: 35-year-old female B IBA from [place] for higher level of care. Patient with chronic right-sided abdominal pain, found to have a mass in the right hemicolon and entire ascending colon and also with weight loss. 7:01 PM Call to ED x-ray, no images seen in cloud. Call to [facility] ED, will contact their CTstaff to re-upload the images Vital signs reviewed Constitutional:Mental status alert and appropriate ENT:Patient speaking in normal voice, handling secretions without problems. Respiratory:Chest is clear to auscultation without wheezes, rales, or rhonchi. Cardiovascular:Heart tones normal, normal rate. Abdomen:+ right sided TTP MDM: Testing or Treatment considered but not performed: Additional testing and/or treatment considered but not performed in FEP area, will defer to patient's primary ED provider. documented in this encounter Plan of Treatment Scheduled Orders Name Type Priority Associated Diagnoses Order Schedule Complete Blood Count, with Differential Lab Routine STAT for 1 Occurrences starting 2025 until 2025 Comprehensive Metabolic Panel Lab Routine STAT for 1 Occurrences starting 2025 until 2025 POCT , Urine Point of Care Testing STAT Once for 1 Occurrences starting 2025 until 2025 documented as of this encounter Visit Diagnoses Not on filedocumented in this encounter
--- OUTSIDE RECORDS SUMMARY | 2025-04-15 19:48 | XMS_ITS ---
Author Name [facility] Organization Unknown Encounters Encounter Type Encounter Reason Primary Diagnosis Location Date Emergency Abdominal Pain Abdominal Pain [facility] 2025 Care Team Organization Name Specialty Phone Email Start Date End Da te CoSchedule 2025 CoSchedule 2025
--- OUTSIDE RECORDS SUMMARY | 2025-04-15 19:48 | XMS_ITS | Clinical Summary ---
Author Organization [facility] Address [address] [place] [address] Care Team Providers Care Financial Administrator Name Role Phone Unavailable Primary Care Provider Unavailabl e Allergies No known active allergies Encounters Date Type Department Care Team Description 2025 5:58 PM EST - Present Emergency [facility] Emergency Department [address] [place] [id number] from Last 3 Months Social History Tobacco Use Types Packs/Day Years Used Date Smoking Tobacco: Never Assessed Comments Unknown Sex and Gender Information Value Date Recorded Sex Assigned at Female 2025 6:05 PM EST Legal Sex Female 1:09 PM EST Gender Identity Female 2025 6:05 PM EST Sexual Orientation Heterosexual (straight) 04/15 6:05 PM EST Last Filed Vital Signs Vital Sign Reading Time Taken Comments Blood Pressure 114/78 2025 5:54 PM EST Pulse 80 2025 5:54 PM EST Temperature 35.8 C (96.5 F) 2025 5:54 PM EST Respiratory Rate 18 2025 5:54 PM EST Oxygen Saturation 96% 2025 5:54 PM EST Inhaled Oxygen Concentration - - Weight - - Height - - Body Mass Index - - Plan of Treatment Health Maintenance Due Date Last Done Comments Hepatitis C Virus Screening 1990 HIV Screening 2003 DTaP/Tdap/Td Vaccines (1 - Tdap) 2009 Hepatitis B Vaccines (1 of 3 - 19+ 3-dose series) 2009 Pap Smear (Ages 21-65) 2011 Influenza Vaccine 12/26/2024 COVID-19 Vaccine ( - 2023-2 5 season) 2025 HPV Vaccines (No Doses Required) Completed Pneumococcal Vaccine: Pediat emil (0-5 Years) and At-Risk Patients (6 to 49 Years) Aged Out No longer eligible b ased on patient's age to complete this topic Insurance [employer]ARE [facility]
--- OUTSIDE RECORDS SUMMARY | 2025-04-15 19:49 | XMS_ITS | Clinical Summary ---
Author Organization [facility] Address [address] [place] [address] Care Team Providers Care Supervisor Maintenance And Custodians Name Role Phone Chandu Carlos Primary Care Provider [phone] Allergies No known active allergies Medications omeprazole (PriLOSEC) 40 mg capsuleIndicati ons:Right upper quadrant abdominal pain Take 1 capsule (40 mg total) by mouth once a day. 30 capsule 2 01/19/2025 Active docusate sodium (COLACE) 100 mg capsule Take 100 mg by mouth 2 times daily. 12/31/2024 Active ferrous sulfate 325 mg (65 mg iron) tablet Take 1 tablet by mouth 2 times daily. 12/31/2024 Active butalbital-acet aminophen-caffe ine (FIORICET) 50-325-40 mg tablet SMARTSI Tablet(s) By Mouth Every 6 Hours PRN 12/31/2024 Active multivitamin-Ca -iron-minerals tablet 1 tablet daily. Active traMADoL (ULTRAM) 50 mg tablet Take 1 tablet (50 mg total) by mouth every 8 hours as needed for pain. 20 tablet 03/03/2025 Active polyethylene glycol 3350 (MIRALAX) 17 gram packet Take 1 packet (17 g total) by mouth daily as needed for constipation . Mix powder in 4 to 8 oz of water, juice, coffee, or tea prior to administrati on. 30 each 2 03/12/2025 Active Active Problems Problem Noted Date Diagnosed Date Mass of thigh, right 02/23/2025 Iron deficiency anemia 01/19/2025 Assessment & Plan (01/19/2025 7:16 PM EDT): Patient with newly found iron deficiency anemia and abdominal pain. Is unclear if these entities are separate or linked in someway. She did have a stone in her gallbladder so it is possible that she could be having symptomatic cholelithiasis. That would not explain her anemia however. She has not had any overt GI blood loss but we will plan for an EGD and colonoscopy to further evaluate her iron deficiency anemia. Her PCP also referred her to hematology so she should have her a workup by them as well. I have advised that she stop NSAID use and instead try taking Tylenol 1 to 2 tablets of [address]. We will also trial omeprazole in case she is having some form of upper GI blood loss from NSAID use such as gastritis or an ulcer. Risk/benefit of EGD and colonoscopy and rationale was discussed with the patient and she is agreeable for procedure. Epigastric pain 01/19/[address] of the abdomen 01/19/2025 Assessment & Plan (01/19/2025 7:16 PM EDT): There was a comment of possibility of some form of left thigh lipoma or liposarcoma. I will defer management of this to her PCP and possibly hematology team if this is appropriate for them to evaluate further as well but this is outside of the GI system. Encounters Date Type Department Care Team Description 03/18/2025 Telephone [facility] Floor [address] [place] [address] Siddhartha Newman MD 03/18/2025 Orders Only [facility] 5th Floor [address] [place] [address] Siddhartha Newman MD 03/18/2025 Telephone [facility] 5th Floor [address] [place] [address] Siddhartha Newman MD 03/16/2025 Telephone [facility] [address] [place] [address] Stone Finisher: Karol Goel DO 03/16/2025 Telephone [facility] 5th Floor [address] [place] [address] Siddhartha Newman MD Advice Only (PT of Dr. Newman, PCP office requesting clinical notes from visit on 03/03) 03/13/2025 Orders Only [facility] Interventional Radiology [address] [place] [address] Jo Temple PA 03/12/2025 Orders Only [facility] [address] [place] [address] Korina Clifford Malignant neoplasm of ascending colon 03/10/2025 Telephone [facility] [address] [place] [id number] Stone Finisher: Karol Goel DO 03/06/2025 5:42 PM EDT - 03/06/2025 11:59 PM EDT Hospital Encounter [facility] [address] [place] [phone] Colonic mass Discharge Disposition: Home or Self Care (01) 03/03/2025 10:30 AM EDT Office Visit [facility] [address] [place] [address] [address] [place] [address] Siddhartha Newman MD Malignant neoplasm of ascending colon (Primary Dx); Iron deficiency; Mass of thigh, right 02/20/2025 Telephone [facility] [address] [place] [address] Stone Finisher: Karol Goel DO 02/20/2025 Telephone [facility] Colorectal Surgery [address] [place] [address] Stone Finisher: Latrice Hogan 02/17/2025 Orders Only [address], 5th [place] [address] Yo Villegas DO 02/16/2025 3:03 PM EDT Anesthesia Event [facility] Endoscopy [address] [place] [address] Moy Collado MD El-Kadi, Hisham S, MD 02/16/2025 2:45 PM EDT - 02/16/2025 3:40 PM EDT Surgery [facility] Endoscopy [address] [place] [address] Karol Alas DO UPPER ENDOSCOPY; DIAGNOSTIC WITH BRUSH/WASH (SP) WITH POSSIBLE MODERATE SEDATION [09793 (CPT )] 02/16/2025 2:27 PM EDT - 02/16/2025 5:44 PM EDT Hospital Encounter [facility] [address] [place] [address] Karol Alas DO Marshall, Christopher A., MD Colonic mass (Primary Dx); Iron deficiency anemia, unspecified; Right upper quadrant pain Discharge Disposition: Home or Self Care () 02/16/2025 Orders Only [facility] Interventional Radiology [address] [place] [address] Taylor Granados MD 02/10/2025 3:30 PM EDT Office Visit [facility] [address] [place] [phone] Stone Finisher: Bony Brennan Jr., MD Mass of thigh, right (Primary Dx) 02/10/2025 10:58 AM EDT - 02/10/2025 3:00 PM EDT Hospital Encounter [facility] Endoscopy [address] [place] [address] Prince Mcneil MD Discharge Disposition: Home or Self Care () 02/10/2025 Telephone [facility] [address] [place] [address] Stone Finisher: Prince Batista MD 02/10/2025 Prep for Case [facility] [address] [place] [address] Stone Finisher: Karol Goel DO 02/10/2025 Orders Only [facility] [address] [place] [address] Stone Finisher: Prince Batista MD Iron deficiency anemia, unspecified iron deficiency anemia type 02/09/2025 Orders Only [facility] [address] [place] [address] Stone Finisher: Prince Batista MD Iron deficiency anemia, unspecified iron deficiency anemia type (Primary Dx) 02/03/2025 Transcribe Orders [facility] [address] [place] [phone] Chandu Carlos Lipoma of extremity (Primary Dx) 01/27/2025 Results Follow-Up [facility] [address] [place] [address] Stone Finisher: Prince Batista MD 01/21/2025 Prep for Case [facility] [address] [place] [address] Stone Finisher: Prince Batista MD 01/19/2025 4:00 PM EDT Office Visit [facility] [address] [place] [address] Stone Finisher: Prince Batista MD Iron deficiency anemia, unspecified iron deficiency anemia type (Primary Dx); Right upper quadrant abdominal pain 01/14/2025 Telephone [facility] [address] [place] [address] Stone Finisher: Trang Nieto Telephone Intake, Staff PAC Appt Request - New (Urgent referral) 01/14/2025 Telephone [facility] 5th Floor [address] [place] [address] Telephone Intake, Staff PAC Appt Request - New from Last 3 Months Family History Medical History Relation Name Comments Cervical cancer Mother Breast cancer Mother's Sister Colon cancer Mother's Sister Relation Name Status Comments Mother Mother's Sister Social History Tobacco Use Types Packs/Day Years Used Date Smoking Tobacco: Never Passive Smoke Exposure: Never Smokeless Tobacco: Never Tobacco Cessation:Counseling Given: Not Answered Alcohol Use Standard Drinks/Week Comments Not Currently 0 (1 standard drink = 0.6 oz pur e alcohol) Comments No Sex and Gender Information Value Date Recorded Sex Assigned at Female 01/13/2025 10:22 AM EDT Legal Sex Female 10:19 AM EDT Gender Identity Female 01/13/2025 10:22 AM EDT Sexual Orientation Straight 01/19/2025 2: 41 PM EDT Last Filed Vital Signs Vital Sign Reading Time Taken Comments Blood Pressure 110/73 03/03/2025 11:09 AM EDT Pulse 80 03/03/2025 11:09 AM EDT Temperature 37.1 C (98.8 F) 03/03/2025 11:09 AM EDT Respiratory Rate 18 03/03/2025 11:0 9 AM EDT Oxygen Saturation 100% 03/03/2025 11: 09 AM EDT Inhaled Oxygen Concentration - - Weight 74.8 kg (164 lb 12.8 oz) 025 11:09 AM EDT Height 151 cm (4' 11.45 ) 02/12/2025 12 :53 PM EDT Body Mass Index 32.78 02/12/2025 12:53 PM EDT Plan of Treatment Upcoming Encounters Date Type Department Care Team (Late st Contact Info) Description 05/11/2025 2:00 PM EST Follow-Up [facility] [address] [place] [phone] Stone Finisher: Rachel Lomas, HEALTH SCIENCES PROGRAM COORDINATOR [address] [place], [place] [phone] Health Maintenance Due Date Last Done Comments Cervical Cancer Screening 1990 HIV Screening 1990 HPV and Pap Smear 1990 Hepatitis C Screening 1990 Pap Smear 1990 COVID-19 Vaccine (#1) 1995 Varicella Vaccines (1 of 2 - 13+ 2-dose series) 2002 Hepatitis B Vaccines (1 of 3 - 19+ 3-dose series) 03/28 Pneumococcal Vaccine: Pediat emil (0-5 Years) and At-Risk Patients (6-50 Years) (1 of 2 - PCV) 2009 DTaP,Tdap,and Td Vaccines (1 - Tdap) 2012 Alcohol/Substance Use Screening 05/28/2024 Depression Screening and Follow-Up 05/28/2024 Social Drivers of Health Annual Screening 05/28/2024 Influenza Vaccine (#1) 2024 Goals Goal Patient Goal Type Associated Problems Recent Progress Patient-Stated? Author Autogenerat ed Goal Care Plan Autogenerated Problem No Val Herrera [employer] Implanted Type Area Military Personnel Specialist Device Identifier Shelf Expiration Date Model / Serial / Lot Clip [id number] Resolution 360 20/Bx - [id number] - [id number] Implanted:Qty: 1 on 02/16/2025 by Karol Alas DO at [facility] [employer] [id number] / [id number] / [id number] Procedures * Due to [place] state law, this organization might not be sharing negative HIV tests. Procedure Name Priority Date/Time Associated Diagnosis Comments NGS COLON MUTATION Routine 03/12/2025 2:04 PM EDT Malignant neoplasm of ascending colon CT ABDOMEN PELVIS W CONTRAST STAT 02/2025 6:43 PM EDT Colonic mass CT CHEST W CONTRAST STAT 03/06/2025 6:43 PM EDT Colonic mass SMEAR REVIEW STAT 03/03/2025 12:55 PM EDT Malignant neoplasm of ascending colon CBC AUTO DIFFERENTIAL STAT 03/03/2025 12:55 PM EDT Malignant neoplasm of ascending colon COMPREHENSIVE METABOLIC PANEL STAT 12:55 PM EDT Malignant neoplasm of ascending colon CEA STAT 03/03/2025 12:55 PM EDT Malignant neoplasm of ascending colon MMR (AKA MSI) Routine 02/20/2025 12:31 PM EDT TISSUE EXAM Routine 02/16/2025 3:14 PM EDT Iron deficiency anemia, unspecified Right upper quadrant pain IN COLONOSCOPY FLX DX W/CHRISTY J SPEC WHEN PFRMD 02/16/2025 3:01 PM EDT Iron deficiency anemia, unspecified Right upper quadrant pain IN ESOPHAGOGASTRODUODENOSCOP Y TRANSORAL DIAGNOSTIC 02/16/2025 3:01 PM EDT Iron deficiency anemia, unspecified Right upper quadrant pain COLONOSCOPY 02/16/2025 UPPER GI ENDOSCOPY 02/16/2025 SMEAR REVIEW Routine 02/10/2025 2:03 PM EDT Iron deficiency anemia, unspecified iron deficiency anemia type CBC Routine 02/10/2025 2:03 PM EDT Iron deficiency anemia, unspecified iron deficiency anemia type SMEAR REVIEW Routine 01/19/2025 5:16 PM EDT Iron deficiency anemia, unspecified iron deficiency anemia type CBC Routine 01/19/2025 5:16 PM EDT Iron deficiency anemia, unspecified iron deficiency anemia type COMPREHENSIVE METABOLIC PANEL Routine 5:16 PM EDT Iron deficiency anemia, unspecified iron deficiency anemia type VITAMIN B12 Routine 01/19/2025 5:16 PM EDT Iron deficiency anemia, unspecified iron deficiency anemia type FOLATE Routine 01/19/2025 5:16 PM EDT Iron deficiency anemia, unspecified iron deficiency anemia type from Last 3 Months Results * Due to [place] state law, this organization might not be sharing negative HIV tests. * NGS Colon Mutation (03/12/2025 2:04 PM EDT) Specimens Specimen Number: [id number] Specimen Type: Tissue Specimen Source: Large Intestine, Ascending Colon Linked Case: [id number] Collection/Procedu re Date: 02/16/2025 Specimen Description: Colon (Ascending Mass), Biopsy [facility] MANUAL 03/20/2025 7:38 AM EDT [facility] Block 3A [facility] MANUAL 03/20/2025 7:38 AM EDT [facility] Diagnosis POSITIVE - KRAS (G12D) MUTATION WAS DETECTED (see NOTE and Interpretation). NEGATIVE - BRAF, NRAS, PIK3CA, POLE, PTEN mutations were NOT detected. OTHER POSITIVE FINDINGS - APC, SMARCB1 MUTATIONS WERE DETECTED (see Interpretation). NOTE: KRAS, NRAS mutations and in some instances PIK3CA and the BRAF V600E mutation are reported to be associated with resistance to monoclonal antibody therapies targeting the Epidermal Growth Factor Receptor in patients with metastatic Colorectal Cancer (mCRC). GENE COPY NUMBER ANALYSIS: -------- -Amplification (>6 copies) of the ERBB2 Oncogene was NOT detected. NOTE: No significant gene copy number changes associated with therapies targeting oncogene amplification or tumor suppressor deletion were detected. INTERPRETATION GENE: APC (APC regulator of WNT signaling pathway) MUTATION: p.S1465*fs (c.4393_4394delAG) TYPE: Deletion - Frameshift MUTATION%: 10-15% of the total PCR amplicons for this gene* *This value depends on gene copy number and does not represent tumor burden in the specimen. FUNCTION: Tumor suppressor, Loss of Function - disregulation of the WNT signalling pathway through stabilization of the B-catenin protein. 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 THERAPY: No FDA approved therapy targeting this mutation for this tumor type. GENE: KRAS (KRAS wicho-oncogene) MUTATION: p.G12D (c.35G>A) TYPE: Missense (Substitution Mutation) MUTATION%: 10-15% of the total PCR amplicons for this gene* *This value depends on gene copy number and does not represent tumor burden in the specimen. FUNCTION: Oncogene, Activation (turns off GTPase function) - constitutive activation of MAP kinase pathway. 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 THERAPY: No FDA approved therapy targeting this mutation for this tumor type. GENE: SMARCB1 (SWI/SNF related) MUTATION: p.R377C (c.1129C>T) TYPE: Missense (Substitution Mutation) MUTATION%: 10-15% of the total PCR amplicons for this gene* *This value depends on gene copy number and does not represent tumor burden in the specimen. FUNCTION: Tumor Suppressor, Loss of Function - SWI/SNF complexes regulate gene expression through chromatin remodeling. DIAGNOSIS: Not a previously reported somatic mutation . THERAPY: No FDA approved therapy targeting this mutation for this tumor type. Table 1: Mutation status of Genes with clinical relevance ------- GENE CHR RESULT >500X(*) COVERAGE ------- APC 5 MUTANT Yes BRAF 7 Wildtype Yes KRAS 12 MUTANT Yes NRAS 1 Wildtype Yes PIK3CA 3 Wildtype Yes PTEN 10 Wildtype Yes POLE 12 Wildtype Yes SMARCB1 22 MUTANT Yes ------- (*) Coverage >500X is required to detect a mutation of 5% in a background of wild type alleles. Contact lab for detail of gene exon/hotspot codons covered. [facility] MANUAL 03/20/2025 7:38 AM EDT [facility] Clinical History 34 yo F, newly diagnosed colon cancer, dMMR [facility] MANUAL 03/20/2025 7:38 AM EDT [facility] Resources INCIDENCE: Table 2 lists mutation incidence in Colon Cancer GENE INFO: http://ghr.nlm.nih .gov/BrowseGenes THERAPY: www.cancer.gov/can certopics/factshee t/Therapy/targeted TRIALS: see https://clinicaltr ials.gov/ Based on the mutation information above, an appropriate clinical trial if available may be considered. CANCER RESOURCE: www.Celectancergenome .org/content/disea se/colorectal-canc er/ [facility] MANUAL 03/20/2025 7:38 AM EDT [facility] AN[facility] PATHOLOGY LABORAT[facility] Molecular Gene Relevance Table 2: Amazing Global TechnologiesiSeq Cancer Hotspot Panel v3 genes - relative frequency of gene mutations in Carcinoma Mutation Colorectal Adenocarcinoma Pancreatic Adenocarcinoma Lung Adenocarcinoma Appendiceal Carcinoma ALK (%) 12 <1 6 - APC (%) 43-79 1-6 4 - TRAVIS (%) 33 4-5 7-8 - BRAF (%) 14-22 1-2 7 - CDH1 (%) 15-16 <1 1 - CDKN2A (%) 2 1-23 3-8 - CTNNB1 (%) 20 0-2 4 <1 EGFR (%) 19 <1 15-34 - ERBB2 (%) 7 1 2 - ERBB4 (%) 14 2 9 - FBXW7 (%) 21-29 2-3 2 - FGFR2 (%) 10 <1 2 - GNAS (%) 4 1 1 46 JAK2 (%) 12 <1 4 - KDR (%) 9 <1 7-8 - KIT (%) 20-24 <1 3 - KRAS (%) 36-46 70-96 20-27 68 MET (%) 11 <1 5 - MLH1 (%) 13 <1 2 - NOTCH1 (%) 9 1 5 - NRAS (%) 9 <1 1 - PDGFRA (%) 11 <1 7-8 - PIK3CA (%) 23-43 1-3 6 - PTEN (%) 27-38 <1 1 - RB1 (%) 20-21 1 3 - RET (%) 9 <1 4 - SMAD4 (%) 25-31 18-22 3 14 STK11 (%) 7 0-2 10 - TP53 (%) 49-66 39-52 38-44 50-100 [facility] MANUAL 03/20/2025 7:38 AM EDT [facility] Test Description Intended Use: The Ampliseq Cancer Hotspot Panel is designed to detect >2800 mutations in genes frequently mutated in human malignancies. Clinically actionable mutations are reported, providing therapeutic, diagnostic, or prognostic information that may guide a patient to the appropriate therapy or clinical trial. Method: For tissue specimens, areas of tumor were identified by the pathologist and microdissected. The collected cells were lysed and genomic DNA was purified. DNA was quantified by spectrophotometry/ fluorometry. A library was created using multiplex PCR targeting hot spot mutations in 50 genes (CHPv2/CHPv3 see details below). PCR amplicons were digested with FuPa, followed by by ligation of a sequencing linker and barcode for patient identification. Realtime-PCR was used to quantify the library. A sequencing template was prepared first by diluting the library, then by performing emulsion PCR to amplify and link the amplicon to a sequencing bead. Sequencing template was loaded onto an UCWeb next generation sequencer and data was analyzed using UC[employer] Variant Caller and XMS Penvision Gene software packages using AVYa16_6 (Sergio HG19) as the reference sequence. ION Ampliseq Cancer Hotspot Panel v2/v3 (CHPv2/CHPv3): ABL1 CSF1R FGFR2 IDH1 MLH1 POLE* SRC AKT1 CTNNB1 FGFR3 IDH2 MPL PTEN STK11 ALK EGFR FLT3 JAK2 MYD88* PTPN11 TERT promoter* APC ERBB2 GNA11 JAK3 NOTCH1 RB1 TP53 TRAVIS ERBB4 GNAQ KDR NPM1 RET VHL BRAF EZH2 GNAS KIT NRAS SMAD4 CDH1 FBXW7 HNF1A KRAS PDGFRA SMARCB1 CDKN2A FGFR1 HRAS MET PIK3CA SMO Gene present in CHPv2 only * Gene present in CHPv3 only Additional References: Gene mutations detected by the CHPv2 assay can be found at (https://assets.LightInTheBox.com/TFS -Assets/CSD/Refere nce-Materials/cms_ [email or web address].csv). The COSMIC ID or Target URL can be used to obtain mutation details at the Catalogue of Somatic Mutations in Cancer (http://cancer.raman daksha.ac.uk/cancerge mashpee/projects/cosm ic/). DNA sequences used as references for this panel of genes can be found at http://www.ncbi.[facility].nih.gov/refseq/r sg/. The mutation nomenclature is based on the convention recommended by the Human Genome Variation Society (http://varnomen.h gvs.org/). Appropriate positive and negative controls were run and confirm assay sensitivity and specificity. Detection limit of diluted positive control DNA in a background of wild-type alleles was 1% for mis-sense mutations and 5% for insertions & deletions when sequencing coverage is >500X. Is average coverage greater than 500x? Yes Limitations: This mutation panel is designed to detect mutations previously identified in cancer genome studies. Most genes are not sequenced in their entirety and mutations outside the targeted regions will not be detected. In addition, this method will not detect gross genetic alterations, such as large deletions, duplications, and inversions. In instances when sequencing coverage falls below 500X a mutation <10% of the total population may not be detected. If a variant of unknown significance is detected, limited information regarding pathogenicity can be inferred since the assay does not distinguish between a somatic mutation and a germ line variant when testing the tumor component alone. When appropriate, mutations detected by EBOOKAPLACEt sequencing were confirmed as follows. Patient DNA was analyzed using endpoint PCR. Specific primer sets were used to amplify the gene region of interest and PCR the amplicons were digested with ExoSAP. DNA products were purified from the [place] sequencing reaction, and analyzed using capillary gel electrophoresis and fluorescence detection. [facility] MANUAL 03/20/2025 7:38 AM T [facility] ANAT[facility]IC PATHOLOGY LABORATORY References 1. Bimal et al. COSMIC: mining complete cancer genomes in the Catalogue of Somatic Mutations in Cancer (COSMIC) Nucleic Acids Research, 2011; 39:945-50. 2. Krysta ST et al. dbSNP: the NCBI database of genetic variation. Nucleic Acids Res. 2000May 28;29(1):308-11. Available from: http://www.ncbi.nl .nih.gov/SNP/ 3. Rachel Zheng et al. Mutaional landscape and significance across 12 major cancer types. Nature, 2013; 502:333-339. 4. Ajay et al. Oncogenic Activation of the JAZ/RUFUS Signaling Pathway Impairs the Response of Metastatic Colorectal Cancers to Anti-Epidermal Growth Factor Receptor Antibody Therapies. Cancer Res. 2007; 67: 2644-68. 5. Josy et al. Wild-Type BRAF is Required for Response to Panitumumab or Cetuximab in Metastatic Colorectal Cancer. J Clin Oncol. 2008; 26: 5705-12. 6. Ruslan WOODS and Wilfredo LANGFORD. The quest to overcome resistance to EGFR-targeted therapies in cancer. Nature Medicine. 2014. 19:2841-0277. 7. Vanessa Zheng et al. The predictive value of KRAS, NRAS, BRAF, PIK3CA and PTEN for anti-EGFR treatment in metastatic colorectal cancer: A systematic review and meta-analysis. Acta Oncologica, 2014; 53: 852-864. [facility] MANUAL 03/20/2025 7:38 AM EDT [facility] ASR Disclaimer These tests were developed and their performance characteristics determined by the Laboratory [facility]. They have not been cleared or approved by the U.S. Food and Drug Administration (FDA). The FDA has determined that such clearance or approval is not necessary. This test is used for clinical purposes. It should not be regarded as investigational or for research. The laboratory is certified under the Clinical Laboratory Improvement Amendments of 1988 (CLIA-88) as qualified to perform high complexity clinical laboratory testing. Information in this report is compiled from sources believed to be reliable. However, scientific literature, clinical trials, and therapies are constantly updated. This summary should be used only as a guide, and health care providers should employ sound clinical judgment in interpreting this information for individual patient care. These results do not rule out other gene mutations not included in the Ion AmpliSeq Cancer Hotspot Panel v2. False positive or negative results may occur for reasons that include blood transfusions, a somatic mutation or single nucleotide polymorphism (SNP) at or near the primer binding sites or involvement of a target gene in a chromosome translocation. Moreover, negative results do not preclude the presence of mutations below detection limits of the assay. [facility] MANUAL 03/20/2025 7:38 AM EDT [facility] Signature . [employer] MANUAL 03/20/2025 7:38 AM EDT [facility] Tissue Entire ascending colon / Unknown Non-Blood Collection / Unknown 03/12/2025 2:04 PM EDT 03/12/2025 2:04 PM EDT us Raymond Hebert MD LAB MOLECULAR ORDERABLE S Final Result [facility] [address] [place] [address], [place] * CT Abdomen Pelvis W Contrast (03/06/2025 6:43 PM EDT) Anatomical Region Laterality Modality Body Computed Tomogra phy 03/06/2025 7:47 PM EDT Impressions 03/07/2025 10:16 AM EDT Large ascending colon mass consistent with known malignancy. Suspicious subcentimeter lymph nodes within the right colon mesentery. No distant metastases in the abdomen or pelvis. If this radiology report contains a blank impression section, it is an incomplete radiology report. Please contact the interpreting radiologist or applicable radiology division as soon as possible to obtain the completed interpretation. Workstation ID: [id number] Narrative 03/07/2025 10:16 AM EDT EXAMINATION: CT ABDOMEN PELVIS W CONTRAST INDICATION: Staging colon cancer. TECHNIQUE: Images of the abdomen and pelvis were obtained with intravenous contrast. Coronal and sagittal reformats were generated. COMPARISON: Outside CT from 01/09/2025. FINDINGS: LOWER THORAX: For findings in the chest, please refer to the separately dictated chest CT report under a separate accession number. HEPATOBILIARY: No focal hepatic lesions. Perfusional pseudolesion versus focal fat in the left hepatic lobe. Patent portal and hepatic veins. Cholelithiasis within a contracted gallbladder. No biliary ductal dilatation. SPLEEN: No splenomegaly. PANCREAS: No focal masses or ductal dilatation. ADRENAL GLANDS: No adrenal nodules. KIDNEYS/URETERS: No hydronephrosis, calculi, or solid mass lesions. Subcentimeter hypodensities within the right kidney likely represent cysts. GI TRACT: Large mass within the ascending colon consistent with known malignancy. No bowel obstruction. Normal appendix. PERITONEUM/RETROPERITONEUM: No ascites or free air. No peritoneal nodules identified. LYMPH NODES: There are numerous prominent but subcentimeter lymph nodes within the right colon mesentery; these measure up to 9 mm short axis but are suspicious nonetheless. No additional lymphadenopathy in the abdomen or pelvis. VESSELS: Unremarkable. PELVIC ORGANS/BLADDER: Age-appropriate appearance of the uterus and adnexa. Unremarkable bladder. BONES AND SOFT TISSUES: Partially imaged intramuscular lipoma within the right tensor fascia sharon muscle. No suspicious lytic or blastic osseous lesion is identified. 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 Resulting Agency Comment [id number] Procedure Note Jerome Dalal MD - 03/07/2025 EXAMINATION: CT ABDOMEN PELVIS W CONTRAST INDICATION: Staging colon cancer. TECHNIQUE: Images of the abdomen and pelvis were obtained with intravenouscontrast. Coronal and sagittal reformats were generated. COMPARISON: Outside CT from 01/09/2025. FINDINGS: LOWER THORAX: For findings in the chest, please refer to the separatelydictated chest CT report under a separate accession number. HEPATOBILIARY: No focal hepatic lesions. Perfusional pseudolesion versusfocal fat in the left hepatic lobe. Patent portal and hepatic veins.Cholelithiasis within a contracted gallbladder. No biliary ductaldilatation. SPLEEN: No splenomegaly. PANCREAS: No focal masses or ductal dilatation. ADRENAL GLANDS: No adrenal nodules. KIDNEYS/URETERS: No hydronephrosis, calculi, or solid mass lesions.Subcentimeter hypodensities within the right kidney likely representcysts. GI TRACT: Large mass within the ascending colon consistent with knownmalignancy. No bowel obstruction. Normal appendix. PERITONEUM/RETROPERITONEUM: No ascites or free air. No peritoneal nodulesidentified. LYMPH NODES: There are numerous prominent but subcentimeter lymph nodeswithin the right colon mesentery; these measure up to 9 mm short axis butare suspicious nonetheless. No additional lymphadenopathy in the abdomenor pelvis. VESSELS: Unremarkable. PELVIC ORGANS/BLADDER: Age-appropriate appearance of the uterus andadnexa. Unremarkable bladder. BONES AND SOFT TISSUES: Partially imaged intramuscular lipoma within theright tensor fascia sharon muscle. No suspicious lytic or blastic osseouslesion is identified. Unilateral left-sided pars interarticularis defectat L5. IMPRESSION: Large ascending colon mass consistent with known malignancy. Suspicioussubcentimeter lymph nodes within the right colon mesentery. No distantmetastases in the abdomen or pelvis. If this radiology report contains a blank impression section, it is anincomplete radiology report. Please contact the interpreting radiologistor applicable radiology division as soon as possible to obtain thecompleted interpretation. Workstation ID: [id number] us Karol Alas DO IMG CT PROCEDURES Final Resul t * CT Chest W Contrast (03/06/2025 6:43 PM EDT) Anatomical Region Laterality Modality Body Computed Tomogra phy 03/06/2025 7:47 PM EDT Impressions 03/07/2025 10:32 AM EDT Impression: 1. No evidence of metastatic disease within the chest. No evidence of a pulmonary nodule. No evidence of active pulmonary disease. 2. No evidence of adenopathy within the chest. If this radiology report contains a blank impression section, it is an incomplete radiology report. Please contact the interpreting radiologist or applicable radiology division as soon as possible to obtain the completed interpretation. Workstation ID: [id number] Narrative 03/07/2025 10:32 AM EDT Indication: colon cancer staging K63.89 - I10 - Other specified diseases of intestine, Comparison: None Technique: CT examination was performed with intravenous contrast. Axial, coronal, and sagittal MPRS , axial MIP and coronal MinIP reformations were performed. Dose: For radiation dose control at least one of the following techniques was used in this procedure (1) Automated exposure control (2) Adjustment of the mA and/or kV according to patient size (3) Use of iterative reconstruction technique. Findings: Neck and thoracic inlet: The thyroid gland is normal Mediastinum and large vessels: Aorta The thoracic aorta is normal in size. Pulmonary arteries The pulmonary arteries are normal. Esophagus The esophagus is unremarkable. Other mediastinal findings No other abnormal mediastinal findings are present. Heart: Cardiac size The heart is normal in size. Coronary arteries No visible coronary calcifications. Valves No valvular calcifications. Pericardium No abnormality. Lymph nodes: Supraclavicular and axillary Normal sized lymph nodes, no enlarged lymph nodes. Mediastinal Normal sized lymph nodes, no enlarged lymph nodes. Hilar Normal sized lymph nodes, no enlarged lymph nodes. Others None. Lung parenchyma: The lungs are clear bilaterally. There is no evidence of a pulmonary nodule. Airways: The trachea and mainstem bronchi are normal. Pleura: No abnormality. Upper abdomen: Please see the report of the CT scan of the abdomen pelvis performed concurrently on 03/06/2025 Chest wall and bones: There are no bony abnormalities. The soft tissues of the chest wall are unremarkable. Resulting Agency Comment [id number] Procedure Note Case Dang MD - 03/07/2025 Indication: colon cancer staging K63.89 - I10 - Other specified diseasesof intestine, Comparison: None Technique: CT examination was performed with intravenous contrast. Axial, coronal,and sagittal MPRS , axial MIP and coronal MinIP reformations wereperformed. Dose: For radiation dose control at least one of the following techniqueswas used in this procedure (1) Automated exposure control (2) Adjustmentof the mA and/or kV according to patient size (3) Use of iterativereconstruction technique. Findings: Neck and thoracic inlet: The thyroid gland is normal Mediastinum and large vessels: Aorta The thoracic aorta is normal in size. Pulmonary arteries The pulmonary arteries are normal. Esophagus The esophagus is unremarkable. Other mediastinal findings No other abnormal mediastinal findings are present. Heart: Cardiac size The heart is normal in size. Coronary arteries No visible coronary calcifications. Valves No valvular calcifications. Pericardium No abnormality. Lymph nodes: Supraclavicular and axillary Normal sized lymph nodes, no enlarged lymph nodes. Mediastinal Normal sized lymph nodes, no enlarged lymph nodes. Hilar Normal sized lymph nodes, no enlarged lymph nodes. Others None. Lung parenchyma: The lungs are clear bilaterally. There is no evidence of a pulmonarynodule. Airways: The trachea and mainstem bronchi are normal. Pleura: No abnormality. Upper abdomen: Please see the report of the CT scan of the abdomen pelvis performedconcurrently on 03/06/2025 Chest wall and bones: There are no bony abnormalities. The soft tissues of the chest wall areunremarkable. IMPRESSION: Impression: 1. No evidence of metastatic disease within the chest. No evidence of apulmonary nodule. No evidence of active pulmonary disease. 2. No evidence of adenopathy within the chest. If this radiology report contains a blank impression section, it is anincomplete radiology report. Please contact the interpreting radiologistor applicable radiology division as soon as possible to obtain thecompleted interpretation. Workstation ID: [id number] Karol Alas DO IMG CT PROCEDURES Final Resul t * (ABNORMAL) Smear Review (03/03/2025 12:55 PM EDT) Only the most recent of3 resultswithin the time period is included. Pathologist [facility] Platelet Estimate Increase d(A) Adequate 03/03/2025 2:39 PM EDT [facility] RBC Morphology Present( A) Normal, No clinically significant RBC morphology present (ICSH guidelines, 2015). 03/03/2025 2:39 PM EDT [facility] Anisocytosis 2+(A) Not Present 03/03/2025 2:39 PM EDT [facility] Ovalocytes 2+(A) Not Present 03/03/2025 2:39 PM EDT [facility] Schistocytes 2+(A) Not Present 03/03/2025 2:39 PM EDT [facility] Teardrop Cells 2+(A) Not Present 2:39 PM EDT [facility] Blood Structure of peripheral vein / Unknown Venipuncture / Unknown 03/03/2025 12:55 PM EDT 03/03/2025 1:00 PM EDT Raymond Hebert MD LAB BLOOD ORDERABLES Fi nal Result [facility] [address] [place] [address], [place] * (ABNORMAL) CBC Auto Differential (03/03/2025 12:55 PM EDT) WBC 7.4 3.8 - 10.8 10*3/uL 03/03/2025 2:39 PM EDT [facility] RBC 3.95 3.80 - 5.10 10*6/uL 03/03/2025 2:39 PM EDT [facility] Hemoglobin 7.7(L) 11.7 - 15.5 g/dL 03/03/2025 2:39 PM EDT [facility] Hematocrit 27.4(L) 35.0 - 45.0 % 03/03/2025 2:39 PM EDT [facility] MCV 69.4(L) 80.0 - 100.0 fL 03/03/2025 2:39 PM EDT [facility] MCH 19.5(L) 27.0 - 33.0 pg 03/03/2025 2:39 PM EDT [facility] MCHC 28.1(L) 32.0 - 36.0 g/dL 03/03/2025 2:39 PM EDT [facility] RDW 22.6(H) 11.0 - 15.0 % 03/03/2025 2:39 PM EDT [facility] Platelets 539(H) 140 - 400 10*3/uL 03/03/2025 2:39 PM EDT [facility] MPV 9.6 7.5 - 12.5 fL 03/03/2025 2:39 PM EDT [facility] Neutrophil % 61.7 % 03/03/2025 2:39 PM EDT [facility] Immature Grans % 1.1(H) 0.0 - 0.9 % 03/03/2025 2:39 PM EDT [facility] Lymphocyte % 24.4 % 03/03/2025 2:39 PM EDT [facility] Monocyte % 9.8 % 03/03/2025 2:39 PM EDT [facility] Eosinophil % 2.6 % 03/03/2025 2:39 PM EDT [facility] Basophil % 0.4 % 03/03/2025 2:39 PM EDT [facility] Neutrophil # 4.58 1.50 - 7.80 10*3/uL 03/03/2025 2:39 PM EDT [facility] Immature Grans # 0.08(H) <=0.03 10*3/uL 03/03/2025 2:39 PM EDT [facility] Lymphocyte # 1.80 0.85 - 3.90 10*3/uL 03/03/2025 2:39 PM EDT [facility] Monocyte # 0.70 0.20 - 0.95 10*3/uL 03/03/2025 2:39 PM EDT [facility] Eosinophil # 0.20 0.02 - 0.50 10*3/uL 03/03/2025 2:39 PM EDT [facility] Basophil # <0.03 0.00 - 0.20 10*3/uL 03/03/2025 2:39 PM EDT [facility] nRBC % 0.0 /100 WBCs 03/03/2025 2:39 PM EDT [facility] nRBC # <0.01 <0.01 10*3/uL 03/03/2025 2:39 PM EDT [facility] Total Neutrophil #, Preliminary 4.58 1.50 - 7.80 10*3/uL 03/03/2025 2:39 PM EDT [facility] Comment:This ANC is prelimin andreina and may change. It is based on a white cell differential from an automated cell counter, and has not been reviewed microscopically for the presence of abnormal cells. Blood Structure of peripheral vein / Unknown Venipuncture / Unknown 03/03/2025 12:55 PM EDT 03/03/2025 1:00 PM EDT Raymond Hebert MD LAB BLOOD ORDERABLES Fi nal Result Performing Organization Address [facility] de Phone Number [facility] LAB[facility] [address] [place] [address] * CEA (03/03/2025 12:55 PM EDT) CEA 1.7 <=3.7 ng/mL 03/03/2025 2:45 PM EDT [facility] Comment: Smokers Reference Range: <5.5 ng/mL This test was performed using Kirsten electrochemiluminescence immunoassay method. Values obtained by different assay methods cannot be used interchangeably. Blood Structure of peripheral vein / Unknown Venipuncture / Unknown 03/03/2025 12:55 PM EDT 03/03/2025 1:00 PM EDT Raymond Hebert MD LAB BLOOD ORDERABLES Fi nal Result Performing Organization Address [facility] de Phone Number [facility] [address] [place] [address] * (ABNORMAL) Comprehensive Metabolic Panel (Once) (03/03/2025 12:55 PM EDT) Only the most recent of2 resultswithin the time period is included. NA 138 135 - 145 mmol/L 03/03/2025 2:45 PM EDT [facility] K 4.9 3.5 - 5.3 mmol/L 03/03/2025 2:45 PM EDT [facility] Cl 107 97 - 110 mmol/L 03/03/2025 2:45 PM EDT [facility] CO2 22 22 - 32 mmol/L 03/03/2025 2:45 PM EDT [facility] Anion Gap 9 5 - 15 03/03/2025 2:45 PM EDT [facility] Glucose 94 65 - 99 mg/dL 03/03/2025 2:45 PM EDT [facility] Creatinine 0.50 0.50 - 1.20 mg/dL 03/03/2025 2:45 PM EDT [facility] Calcium 10.5 8.6 - 10.5 mg/dL 03/03/2025 2:45 PM EDT [facility] Total Protein 6.5 6.0 - 8.0 g/dL 03/03/2025 2:45 PM EDT [facility] Albumin 3.8 3.5 - 5.2 g/dL 03/03/2025 2:45 PM EDT [facility] Bilirubin, Total 0.2 0.2 - 1.2 mg/dL 03/03/2025 2:45 PM EDT [facility] Alkaline Phosphatase 109 35 - 129 U/L 03/03/2025 2:45 PM EDT [facility] AST 22 10 - 40 U/L 03/03/2025 2:45 PM EDT [facility] ALT 15 10 - 40 U/L 03/03/2025 2:45 PM EDT [facility] BUN 6(L) 7 - 23 mg/dL 03/03/2025 2:45 PM EDT [facility] eGFR >90 >=60 mL/min/1. 73m2 03/03/2025 2:45 PM EDT [facility] Comment:The estimated glomer ular filtration rate (eGFR) is calculated using a new formula developed by the NKF-ASN task force to eliminate race-based correction factors. The new formula uses serum/plasma creatinine, age, and gender to determine eGFR. A value below 60mls/min might indicate kidney disease and will be flagged. For additional information, see Veronika et al, Am J Kidney Dis. 2021;79(2):268- 288, A Unifying Approach for GFR estimation: Recommendations of the NKF-ASN Task Force on Reassessing the Inclusion of Race in Diagnosing Kidney Disease . Globulin, Total 2.7 2.1 - 4.2 g/dL 03/03/2025 2:45 PM EDT [facility] CLINICAL PATHOLOGY LABORATORY A/G Ratio 1.4(L) 1.5 - 3.0 03/03/2025 2:45 PM EDT [facility] CLINICAL PATHOLOGY LABORATORY Blood Structure of peripheral vein / Unknown Venipuncture / Unknown 03/03/2025 12:55 PM EDT 03/03/2025 1:00 PM EDT Raymond Hebert MD LAB BLOOD ORDERABLES Fi nal Result Performing Organization Address City/[facility]/ZIP Co de Phone Number [facility] CL[facility] LAB[facility] [address] [place] [address], * MMR (AKA MSI) (02/20/2025 12:31 PM EDT) MMR The MMR result on this patient specimen is available. Please refer to: [id number] [place] MANUAL 03/26/2025 2:41 PM EDT [facility] Other Other / Unknown 02/20/2025 1 2:31 PM EDT 02/20/2025 12:31 PM EDT Karol Alas DO LAB IHC ORDERABLES Final Resu lt [facility] [address] [place] [address], * (ABNORMAL) Tissue Exam (02/16/2025 3:14 PM EDT) MMR MISMATCH REPAIR IMMUNOHISTOCHEMISTRY (BIOMARKER REPORTING TEMPLATE) Performed on 3A MLH1 Intact nuclear expression MSH2 Loss of nuclear expression MSH6 Intact nuclear expression PMS2 Intact nuclear expression Background nonneoplastic tissue / internal control shows intact nuclear expression. External controls show appropriate patterns of expression. 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 Additional testing for Brooks syndrome and genetic counseling may be indicated. In addition, the patient may also be eligible for checkpoint inhibitor therapy. There are exceptions to the above IHC interpretations. These results should not be considered in isolation, and clinical correlation is recommended to assess the need for germline testing or clinical genetics consultation. Technical Information: Mismatch repair protein expression was tested by immunohistochemistry on paraffin-embedded tissue fixed in Z-Fix using clone M1 (MLH1), clone [id number] (MSH2), clone [id number] (MSH6), and clone [id number] (PMS2), in combination with a polymer-based detection system. Reference: CAP ([employer]) Cancer Protocols: DNA Mismatch Repair Biomarker Reporting Template, v1.0.0.2, October 2020; Gynecologic Biomarker Reporting Template, v1.1.0.0, July 2022; Colon and Rectum Biomarker Reporting Template, v1.3.0.0, October 2020 [facility] MANUAL 4:27 PM EDT [facility] Addendum electronically signed by Hiral Woods MD on 02/23/2025 at 1607 EDT Addendum BIOMARKER REPORTING TEMPLATE Immunohistochemistry performed on 3A Results: NTRK Score Negative (0) HER2 Score Negative (0) Interpretation: Correlation with NGS testing, gene fusion analysis, or FISH is recommended. The lack of protein expression correlates with the absence of an NTRK gene rearrangement and the absence of HER2 (ERBB2) amplification, indicating that the patient is unlikely to respond to NTRK inhibitors or anti-HER2 therapy. Interpretation Criteria: NTRK Score: (Negative 0) Absence of or weak staining in nucleus, cytoplasm or membranes of <50% of tumor cells. NTRK Score: (Equivocal 1+) At least moderate staining in nucleus, cytoplasm, or membranes of <50% of tumor cells. NTRK Score (Equivocal 2+) Weak staining in nucleus, cytoplasm, or membranes of >= 50% of tumor cells. NTRK Score: (Positive 3+) At least moderate staining in nucleus, cytoplasm or membranes in >= 50% of tumor cells. HER2 Score: (Negative 0) No staining or faint/barely perceptible, incomplete membranous staining in < 10% of tumor cells. HER2 Score: (Negative 1+) Faint/ barely perceptible, incomplete membranous staining in >10% of tumor cells. HER2 Score: (Equivocal 2+) Weak / moderate, circumferential membrane staining in > 10% of tumor cells OR strong, complete, membranous staining in < 10% of tumor cells. HER2 Score: (Positive 3+) >10% of tumor cells show homogenous, dark, circumferential membranous staining. Technical Information: Fixative: Z-fix used for tissue, CytoRich red used for cytology preparations. Controls: Tissues with moderate to high protein expression were used as positive controls along with an internal positive control (e.g., NTRK-positive tissues of neural origin or neuroendocrine differentiation; HER2-overexpressing breast cancer). Immunohistochemical studies were performed using: - Rabbit monoclonal anti-panTRK clone [id number] directed against the C-terminal region of TRK A, B and C proteins (Winnie). - Rabbit monoclonal anti-HER2 clone [id number] (Winnie). This assay has not been validated on decalcified tissues, and results on decalcified tissues should be interpreted with caution given the possibility of false negativity. References: ASCO/CAP Clinical Practice Guidelines. Arch Pathol Lab Med. 2018;142(11):1364-138 2. CAP ([employer]) Cancer Protocols: Lung Biomarker Reporting Template, v2.0.1.1, January 2023. [facility] MANUAL 4:27 PM EDT [facility] ANATOMIC PATHOLOGY LABORATORY Addendum electronically signed by Leonel Lau MD on 03/22/2025 at 1627 EDT Final Diagnosis Specimen #1 - Duodenum, Biopsy: - Duodenal mucosa with focal foveolar metaplasia and David's gland hyperplasia suggestive of peptic duodenitis. Specimen #2 - Random Stomach, Biopsy: - Gastric antral and oxyntic mucosa with chronic inactive gastritis. - Negative for intestinal metaplasia or dysplasia. - Immunostain for H.pylori is negative. Specimen #3 - Colon (Ascending Mass), Biopsy: - ADENOCARCINOMA, MODERATE TO POORLY-DIFFERENTIATED . - Foci suspicious of lymphatic vessel invasion is present (Immunostain for D2-40 and ERG evaluated). Comment: Immunohistochemical stains for mismatch repair proteins have been ordered and the results will be released in the addendum reports. Specimen #4 - Colon (Splenic Flexure Mass), Biopsy: - Superficial fragments of tubulovillous adenoma. Note: A significant deeper lesion cannot be excluded in this superficial biopsy. Clinical correlation is recommended. Specimen #5 - Colon (Sigmoid), Polypectomy: - [facility]ular adenoma. [facility] 4:27 PM EDT [facility] ANATOMIC PATHOLOG[facility] LABORATORY at 1230 EDT Clinical History Pre-op diagnosis: Iron deficiency anemia, unspecified [D50.9] Right upper quadrant pain [R10.11] [facility] MANUAL 5 4:27 PM EDT [facility] ANATOMIC PATHOLOGY LABORATORY Gross Description 1. Small Intestine, Duodenum The specimen is received in formalin labeled with the patient's name, date of , medical record number and duodenum biopsies and consists of 4 wispy friable hernandez soft tissue fragments ranging from 0.1 to 0.4 cm in greatest dimension which are filtered and entirely submitted in cassette 1A. 2. Stomach The specimen is received in formalin labeled with the patient's name, date of , medical record number and stomach random gastric biopsies rule out H. pylori and consists of 4 hernandez-white irregular soft tissue fragments ranging from 0.1 to 0.6 cm in greatest dimension which are filtered and entirely submitted in cassette 2A. 3. Large Intestine, Ascending Colon, Ascending Colon Mass Biopsies The specimen is received in formalin labeled with the patient's name, date of , medical record number and ascending colon mass biopsies and consists of multiple friable hernandez and wispy soft tissue fragments ranging from minute to 0.3 cm in greatest dimension which are filtered and entirely submitted in cassette 3A. 4. Large Intestine, Splenic Flexure, Splenic Flexture Mass Biopsies (c f) The specimen is received in formalin labeled with the patient's name, date of , medical record number and splenic flexure mass biopsies and consists of multiple hernandez irregular soft tissue fragments ranging from 0.1 to 0.3 cm in greatest dimension which are filtered and entirely submitted in cassette 4A. 5. Large Intestine, Sigmoid Colon The specimen is received in formalin labeled with the patient's name, date of , medical record number and sigmoid polyp and consists of 2 hernandez irregular soft tissue fragments averaging 1.0 cm dimension which are filtered and entirely submitted in cassette 5A. [facility] MANUAL 5 4:27 PM EDT [facility] ANATOMIC PATHOLOGY LABORATORY Gross Description User Grossing complete by Arlyn Gomez on 02/17/2025 10:02 AM [facility] MANUAL 5 4:27 PM EDT [facility] ANATOMIC PATHOLOGY LABORATORY Best Block for Ancillary Studies 3A [facility] MANUAL 5 4:27 PM EDT [facility] ANATOMIC PATHOLOGY LABORATORY Embedded Images [facility] MANUAL 5 4:27 PM EDT [facility]StoryToysME PagPop [facility] ANATOMIC PATHOLOGY LABORATORY Disclaimer Some of these tests were developed and their performance characteristics determined by the Immunoperoxidase/Hist ology Laboratory of [facility]. They have not been cleared or approved by the U.S. Food and Drug Administration. The FDA has determined that such clearance or approval is not necessary. This test is used for clinical purposes. It should not be regarded as investigational or for research. This laboratory is certified under the Clinical Laboratory Improvement Amendments of 1988 (CLIA-88) as qualified to perform high complexity clinical laboratory testing. [facility] MANUAL 5 4:27 PM EDT [facility] ANATOMIC PATHOLOGY LABORATORY Resulting Agency Case was signed out at [facility], Department of Pathology, [employer] 3 CLIA [id number] [facility] 5 4:27 PM EDT [facility] PATHOLOGY LABORAT[facility] Abnormal Yes(A) (none) [facility] 5 4:27 PM EDT [facility]ITALBBESELECT [facility] [employer] [facility] ANATOMIC PATHOLOGY LABORATORY Report Header Surgical Pathology Report Case: [id number] Authorizing Provider: Karol Alas DO Collected: 02/16/2025 1514 Ordering Location: [facility] Received: 02/17/2025 0855 Center- [facility] Endoscopy Pathologist: Hiral Woods MD Specimens: 1) - Small Intestine, Duodenum, Duodenum biopsies (c f) 2) - Stomach, Stomach - random gastric biopsies (c f) r/o h pylori 3) - Large Intestine, Ascending Colon, Ascending Colon Mass Biopsies 4) - Large Intestine, Splenic Flexure, Splenic Flexture Mass Biopsies (c f) 5) - Large Intestine, Sigmoid Colon, Sigmoid Polyp (c sn) [facility] MANUAL 5 4:27 PM EDT [facility]IC PATHOLOG[facility] LAB[facility] ProVation Case Yes [facility] 4:27 PM EDT [facility] [facility] ANATOMIC PATHOLOGY LABORATORY SURGICAL CSN Component [id number] [facility] MANUAL 4:27 PM EDT [facility] [employer] [facility] ANATOMIC PATHOLOGY LABORATORY Tissue Duodenal structure / Unknown 02/16/2025 3:14 PM EDT 02/17/2025 8:55 AM EDT Comment:Pre-op diagnosis: Iron deficiency anemia, unspecified [D50.9] Right upper quadrant pain [R10.11] Tissue specimen (specimen) Specimen from stomach / Unknown 02/16/2025 3:15 PM EDT 02/17/2025 8:55 AM EDT Comment:Pre-op diagnosis: Iron deficiency anemia, unspecified [D50.9] Right upper quadrant pain [R10.11] Tissue specimen (specimen) Entire ascending colon / Unknown 02/16/2025 3:45 PM EDT 02/17/2025 8:55 AM EDT Comment:Pre-op diagnosis: Iron deficiency anemia, unspecified [D50.9] Right upper quadrant pain [R10.11] Tissue specimen (specimen) Structure of left colic flexure / Unknown 02/16/2025 3:58 PM EDT 02/17/2025 8:55 AM EDT Comment:Pre-op diagnosis: Iron deficiency anemia, unspecified [D50.9] Right upper quadrant pain [R10.11] Specimen from mass lesion (specimen) Entire sigmoid colon / Unknown 02/16/2025 4:13 PM EDT 02/17/2025 8:55 AM EDT Comment:Pre-op diagnosis: Iron deficiency anemia, unspecified [D50.9] Right upper quadrant pain [R10.11] us Karol Alas DO LAB PATHOLOGY/CYTOLOGY ORDERA BLES Edited Result - Final [facility]mox[facility] [facility] ANATOMIC PATHOLOGY LABORATORY [address] [place] [address], [facility] ANATOMIC PATHOLOGY LABORATORY [address] [place] [address], * UPPER GI ENDOSCOPY (02/16/2025) Narrative Procedure Note Karol Alas DO - 02/16/2025 2:48 PM EDT [facility] Gastroenterology Patient Name: Elisha Edwin Procedure Date: 02/16/2025 2:48 PM Date of : 1990 Admit Type: Outpatient Age: 34 Room: [place] [id number] Gender: Female Note Status: Finalized Attending MD: Karol Alas MD Procedure: Upper GI endoscopy Indications: Iron deficiency anemia Providers: Karol Alas MD (Doctor) Referring MD: Prince Mcneil MD (Referring MD) Requesting Provider: Medicines: Monitored Anesthesia Care Complications: No immediate complications. Estimated Blood Loss: Estimated blood loss was minimal. Procedure: Pre-Anesthesia Assessment: - Monitored anesthesia care under the supervisionof a TURN SEWER was determined to be medically necessary forthis procedure based on review of the patient's medical history, medications, and prior anesthesiahistory. After obtaining informed consent, the endoscope was passed under direct vision. Throughout theprocedure, the patient's blood pressure, pulse, and oxygen saturations were monitored continuously. [id number] was introduced through the mouth, andadvanced to the second part of duodenum. The upper GIendoscopy was accomplished without difficulty. The patient tolerated the procedure well. Findings: The Z-line was regular and was found 38 cm from the incisors. The examined esophagus was normal. The entire examined stomach was normal. Biopsies were taken with acold forceps for Helicobacter pylori testing. The examined duodenum was normal. Biopsies were taken with a cold forceps for histology. Impression: - Z-line regular, 38 cm from the incisors. - Normal esophagus. - Normal stomach. Biopsied. - Normal examined duodenum. Biopsied. Recommendation: - Await pathology results. - Perform a colonoscopy today. Attending Participation: I personally performed the entire procedure. Karol Alas MD 02/16/2025 4:18:18 PM Number of Addenda: 0 Note Initiated On: 02/16/2025 2:48 PM us Karol Alas DO [employer] PROCEDURES Final Re sult * COLONOSCOPY (02/16/2025) Narrative Procedure Note Karol Alas DO - 02/16/2025 2:46 PM EDT [facility] Gastroenterology Patient Name: Elisha Pineda Procedure Date: 02/16/2025 2:46 PM Date of : 1990 Admit Type: Outpatient Age: 34 Room: [place] [id number] Gender: Female Note Status: Finalized Attending MD: Karol Alas MD Procedure: Colonoscopy Indications: Iron deficiency anemia Providers: Karol Alas MD (Doctor) Referring MD: Prince Mcneil MD (Referring MD) Requesting Provider: Medicines: Monitored Anesthesia Care Complications: No immediate complications. Estimated Blood Loss: Estimated blood loss was minimal. Procedure: Pre-Anesthesia Assessment: - Monitored anesthesia care under the supervisionof a TURN SEWER was determined to be medically necessary forthis procedure based on review of the patient's medical history, medications, and prior anesthesiahistory. After I obtained informed consent, the scope was passed under direct vision. Throughout theprocedure, the patient's blood pressure, pulse, and oxygen saturations were monitored continuously. The [id number] was introduced through the anusand advanced to the cecum, identified by appendiceal orifice and ileocecal valve. The colonoscopy was performed without difficulty. The patient tolerated the procedure well. The quality of the bowel preparation was evaluated using the BBPS (BostonBowel Preparation Scale) with scores of: Right Colon = 2 (minor amount of residual staining, small fragmentsof stool and/or opaque liquid, but mucosa seen well), Transverse Colon = 3 (entire mucosa seen well withno residual staining, small fragments of stool oropaque liquid) and Left Colon = 2 (minor amount ofresidual staining, small fragments of stool and/or opaque liquid, but mucosa seen well). The total BBPS score equals 7. The quality of the bowel preparation was adequate. Findings: A fungating, infiltrative and ulcerated large mass was found in the proximal ascending colon. The mass was partially circumferential (involving one-half of the lumen circumference) and protruding with occupation of the majority of the lumen, but able to traverse at sideto reach the cecum. The mass measured ten cm in length. Oozing waspresent. Biopsies were taken with a cold forceps for histology. Area wastattooed with an injection of 5 mL of Spot (carbon black). A polypoid and ulcerated non-obstructing mass was found at thesplenic flexure. The mass was non-circumferential. The mass measured four cmin length. Biopsies were taken with a cold forceps for histology. Areawas tattooed with an injection of 2 mL of Yoli ink. A 10 mm polyp was found in the sigmoid colon. The polyp was sessile.The polyp was removed with a cold snare (initially planned for hot snarebut transected with cold snare). Resection and retrieval were complete.To prevent bleeding after the polypectomy, one hemostatic clip was successfully placed (MR conditional). Clip shaper machine hand: Fliplife. There was no bleeding at the end of the procedure. The retroflexed view of the distal rectum and anal verge was normaland showed no anal or rectal abnormalities. Impression: - Likely malignant tumor in the proximal ascending colon. Biopsied. Tattooed. - Mass at the splenic flexure concerning forpossible malignancy. Biopsied. Tattooed. - One 10 mm polyp in the sigmoid colon, removedwith a cold snare. Resected and retrieved. Clipped. - The distal rectum and anal verge are normal on retroflexion view. Recommendation: - The patient will be observed post-procedure,until all discharge criteria are met. - Resume previous diet. - Await pathology results. - Perform CT scan (computed tomography) of thechest and abdomen/pelvis with contrast for staging. - Refer to a colo-rectal surgeon. - Refer to an oncologist pending pathology. Attending Participation: I personally performed the entire procedure. Karol Alas MD 02/16/2025 4:53:31 PM Number of Addenda: 0 Note Initiated On: 02/16/2025 2:46 PM us Karol Alas DO PROVATION PROCEDURES Final Re sult * (ABNORMAL) CBC (02/10/2025 2:03 PM EDT) Only the most recent of2 resultswithin the time period is included. WBC 6.3 3.8 - 10.8 10*3/uL 02/10/2025 3:23 PM EDT [facility] CLINICAL PATHOLOGY LABORATORY RBC 4.12 3.80 - 5.10 10*6/uL 02/10/2025 3:23 PM EDT [facility] CLINICAL PATHOLOGY LABORATORY Hemoglobin 8.1(L) 11.7 - 15.5 g/dL 02/10/2025 3:23 PM EDT [facility] CLINICAL PATHOLOGY LABORATORY Hematocrit 28.9(L) 35.0 - 45.0 % 02/10/2025 3:23 PM EDT [facility] CLINICAL PATHOLOGY LABORATORY MCV 70.1(L) 80.0 - 100.0 fL 02/10/2025 3:23 PM EDT [facility] CLINICAL PATHOLOGY LABORATORY MCH 19.7(L) 27.0 - 33.0 pg 02/10/2025 3:23 PM EDT [facility] CLINICAL PATHOLOGY LABORATORY MCHC 28.0(L) 32.0 - 36.0 g/dL 02/10/2025 3:23 PM EDT [facility] CLINICAL PATHOLOGY LABORATORY RDW 28.9(H) 11.0 - 15.0 % 02/10/2025 3:23 PM EDT [facility] CLINICAL PATHOLOGY LABORATORY Platelets 445(H) 140 - 400 10*3/uL 02/10/2025 3:23 PM EDT [facility] CLINICAL PATHOLOGY LABORATORY MPV 02/10/2025 3:23 PM EDT [facility] CLINICAL PATHOLOGY LABORATORY Comment:A smear review has b een added. Clinician review and interpretation will be needed once the report is final. Blood Structure of peripheral vein / Unknown Venipuncture / Unknown 02/10/2025 2:03 PM EDT 02/10/2025 2:28 PM EDT Prince Mcneil MD LAB BLOOD ORDERABLES Rupa l Result [facility] CLINICAL PATHOLOGY LABORATORY [address] [place] [address], * (ABNORMAL) Folate (01/19/2025 5:16 PM EDT) Folate >40.0(H) 4.8 - 24.2 ng/mL 01/19/2025 6:49 PM EDT [facility] CLINICAL PATHOLOGY LABORATORY Blood Structure of peripheral vein / Unknown Venipuncture / Unknown 01/19/2025 5:16 PM EDT 01/19/2025 5:29 PM EDT Prince Mcneil MD LAB BLOOD ORDERABLES Rupa l Result [facility] CLINICAL PATHOLOGY LABORATORY [address] [place] [address], * Vitamin B12 (01/19/2025 5:16 PM EDT) Vitamin B12 722 232 - 1,245 pg/mL 01/19/2025 6:20 PM EDT [facility] CLINICAL PATHOLOGY LABORATORY Blood Structure of peripheral vein / Unknown Venipuncture / Unknown 01/19/2025 5:16 PM EDT 01/19/2025 5:29 PM EDT Prince Mcneil MD LAB BLOOD ORDERABLES Rupa l Result Performing Organization Address City/[facility]/ZIP Co de Phone Number [facility] CLINICAL PATHOLOGY LABORATORY [address] [place] [address] from Last 3 Months Additional Health Concerns Active Problems Noted Date Diagnosed Date Autogenerated Problem 02/10/2025 [facility] Care Teams Supervisor Maintenance And Custodians Relationship Specialty Start Date End Date Chandu Carlos [address] [place] [address] [phone] PCP - General Family Medicine 03/11/25
--- OUTSIDE RECORDS SUMMARY | 2025-04-15 19:49 | XMS_ITS | Encounter Summary ---
Author Organization [facility] Address [address] [place] [address] Care Team Providers Care Steam And Power Supervisor Name Role Phone Chandu Carlos Primary Care Provider [phone] Encounter Details Date Type Department Care Team (Late st Contact Info) Description 02/16/2025 Orders Only [facility] Interventional Radiology [address] [place] [address] Taylor Granados MD [address] [place], [place] [id number] Social History Tobacco Use Types Packs/Day Years Used Date Smoking Tobacco: Never Passive Smoke Exposure: Never Smokeless Tobacco: Never Alcohol Use Standard Drinks/Week Comments Not Currently 0 (1 standard drink = 0.6 oz pur e alcohol) Comments No Sex and Gender Information Value Date Recorded Sex Assigned at Female 01/13/2025 10:22 AM EDT Legal Sex Female 10:19 AM EDT Gender Identity Female 01/13/2025 10:22 AM EDT Sexual Orientation Straight 01/19/2025 2: 41 PM EDT documented as of this encounter Plan of Treatment Upcoming Encounters Date Type Department Care Team (Late st Contact Info) Description 05/11/2025 2:00 PM EST Follow-Up [facility] Gastroenterology Clinic [address] [place] [address] [phone] Ham Stripper: Rachel Lomas NP [address] [place], [place] [phone] documented as of this encounter Goals Goal Patient Goal Type Associated Problems Recent Progress Patient-Stated? Author Autogenerat ed Goal Care Plan Autogenerated Problem No Val Herrera documented as of this encounter Visit Diagnoses Not on filedocumented in this encounter Additional Health Concerns Active Problems Noted Date Diagnosed Date Autogenerated Problem 02/10/2025 documented as of this encounter Care Teams Steam And Power Supervisor Relationship Specialty Start Date End Date Chandu Carlos [address] [place] [id number] PCP - General Family Medicine 03/11/25 documented as of this encounter
--- OUTSIDE RECORDS SUMMARY | 2025-04-15 19:49 | XMS_ITS | Encounter Summary ---
Author Organization [facility] Address [address] [place] [address] Care Team Providers Care Maintenance Planner Name Role Phone Chandu Carlos Primary Care Provider [phone] Encounter Details Date Type Department Care Team (Late st Contact Info) Description 03/12/2025 Orders Only [facility] [address] [place] [phone] Korina Clifford Malignant neoplasm of ascending colon Social History Tobacco Use Types Packs/Day Years [...] Info) Description 05/11/2025 2:00 PM EST Follow-Up [facility] Gastroenterology Clinic [address] [place] [address] Pediatric Radiologist: Rachel Lomas, BLUE PRINTS TRIMMER [address] [place], [place] [phone] documented as of this encounter Goals Goal Patient Goal Type Associated Problems Recent Progress Patient-Stated? Author Autogenerat ed Goal Care Plan Autogenerated Problem No Val Herrera documented as of this encounter Procedures * Due to [place] [employer] law, this organization might not be sharing negative HIV tests. Procedure Name Priority Date/Time Associated Diagnosis Comments NGS COLON MUTATION Routine 03/12/2025 2: 04 PM EDT Malignant neoplasm of ascending colon documented in this encounter Results * Due to [place] [employer] law, this organization might not be sharing negative HIV tests. * NGS Colon Mutation (03/12/2025 2:04 PM EDT) Specimens Specimen Number: [id number] Specimen Type: Tissue Specimen Source: Large Intestine, Ascending Colon Linked Case: [id number] Collection/Procedu re Date: 02/16/2025 Specimen Description: Colon (Ascending Mass), Biopsy [facility] MANUAL 03/20/2025 7:38 AM EDT [facility] Block [facility]A [facility] 03/20/2025 7:38 AM EDT [facility] Diagnosis POSITIVE - [...] for detail of gene exon/hotspot codons covered. [facility] MANUAL 03/20/2025 7:38 AM EDT [facility] Clinical History 34 yo F, newly diagnosed colon cancer, dMMR [facility] MANUAL 03/20/2025 7:38 AM EDT [facility] Resources INCIDENCE: Table 2 lists mutation incidence in Colon Cancer GENE INFO: http://ghr.nlm.nih .gov/BrowseGenes THERAPY: www.cancer.gov/can certopics/factshee t/Therapy/targeted TRIALS: see https://clinicaltr ials.gov/ Based on the mutation information above, an appropriate clinical trial if available may be considered. CANCER RESOURCE: www.Dragon Armyancergenome .org/content/disea se/colorectal-canc er/ [facility] MANUAL 03/20/2025 7:38 AM EDT [facility] ANATOMIC PATHOLOGY LABORATORY Molecular Gene Relevance Table 2: Studio SBViSeq Cancer Hotspot Panel v3 genes - relative [...] - TP53 (%) 49-66 39-52 38-44 50-100 [facility] MANUAL 03/20/2025 7:38 AM T [facility] PATHOLOGY LABORATORY Test Description Intended Use: The [...] bead. Sequencing template was loaded onto an Space-Time Insight next generation sequencer and data was analyzed using Space-Time Insight Variant Caller and Smart Cube Next Gene software packages using [id number] (Sergio HG19) as the reference sequence. ION [...] the CHPv2 assay can be found at (https://assets. Brandlive/TFS -Assets/CSD/Refere oke-Materials/cms_ [email or web address].csv). The COSMIC ID or Target URL can be used to obtain mutation details at the Catalogue of Somatic Mutations in Cancer (http://cancer.raman daksha.ac.uk/cancerge [place]/projects/cosm ic/). DNA sequences used as references for this panel of genes can be found at http://www.ncbi.[facility].nih.gov/refseq/r sg/. The mutation nomenclature is based on [...] component alone. When appropriate, mutations detected by BIO Wellnesst sequencing were confirmed as follows. Patient DNA was analyzed using endpoint PCR. Specific primer sets were used to amplify the gene region of interest and PCR the amplicons were digested with ExoSAP. DNA products were purified from the Redd sequencing reaction, and analyzed using capillary gel electrophoresis and fluorescence detection. [facility] MANUAL 03/20/2025 7:38 AM EDT [facility] THREE ANATOMIC PATHOLOGY LABORATORY References 1. Bimal et al. COSMIC: mining complete cancer genomes in the Catalogue of Somatic Mutations in Cancer (COSMIC) Nucleic Acids Research, 2011; 39:945-50. 2. Krysta Euceda al. dbSNP: the NCBI database of genetic variation. Nucleic Acids Res. 2000May 28;29(1):308-11. Available from: http://www.ncbi.[facility].nih.gov/SNP/ 3. Rachel Zheng et al. Mutaional landscape [...] EGFR-targeted therapies in cancer. Nature Medicine. 2014. 19:7357-7494. 7. Vanessa Zheng et al. The predictive value of KRAS, NRAS, BRAF, PIK3CA and PTEN for anti-EGFR treatment in metastatic colorectal cancer: A systematic review and meta-analysis. Acta Oncologica, 2014; 53: 852-864. [facility] MANUAL 03/20/2025 7:38 AM EDT [facility] PATHOLOGY LABORATORY ASR Disclaimer These tests were [...] mutations below detection limits of the assay. [facility] MANUAL 03/20/2025 7:38 AM T [facility] PATHOLOGY LABORATORY Signature . [place] MANUAL 03/20/2025 7:38 AM EDT [facility] Tissue Entire ascending colon / Unknown Non-Blood Collection / Unknown 03/12/2025 2:04 PM EDT 03/12/2025 2:04 PM EDT us Raymond Hebert MD LAB MOLECULAR ORDERABLE S Final Result [facility] [address] [place] [address] documented in this encounter Visit Diagnoses Diagnosis Malignant neoplasm of ascending colon Malignant neoplasm of ascending colon documented in this encounter Additional Health Concerns Active Problems Noted Date Diagnosed Date Autogenerated Problem 02/10/2025 documented as of this encounter Care Teams Maintenance Planner Relationship Specialty Start Date End Date Chandu Carlos [address] [place] [phone] PCP - General Family Medicine 03/11/25 documented as of this encounter
--- OUTSIDE RECORDS SUMMARY | 2025-04-15 19:49 | XMS_ITS | Encounter Summary ---
Author Organization [facility] Address [address] [place] [address] Care Team Providers Care Manager Storage Name Role Phone Terrance Chandu Primary Care Provider [phone] Encounter Details Date Type Department Care Team (Late st Contact Info) Description 02/17/2025 Orders Only [address], 5th [place] [address] Yo Villegas DO [address] [place] [id number] Social History Tobacco Use Types Packs/Day Years [...] Info) Description 05/11/2025 2:00 PM EST Follow-Up [facility] [address] [place] [id number] Agate Setter: Rachel Lomas, FSR [address] [place] [address] documented as of this encounter Goals Goal Patient Goal Type Associated Problems Recent Progress Patient-Stated? Author Autogenerat ed Goal Care Plan Autogenerated Problem No Val Herrera documented as of this encounter Visit Diagnoses Not on filedocumented in this encounter Additional Health Concerns Active Problems Noted Date Diagnosed Date Autogenerated Problem 02/10/2025 documented as of this encounter Care Teams Manager Storage Relationship Specialty Start Date End Date Chandu Carlos [address] [place] [id number] PCP - General Family Medicine 03/11/25 documented as of this encounter
--- OUTSIDE RECORDS SUMMARY | 2025-04-15 19:49 | XMS_ITS | Encounter Summary ---
Author Organization [facility] Address [address] [place] [address] Care Team Providers Care Social Services Assistant Name Role Phone Chandu Carlos Primary Care Provider [phone] Encounter Details Date Type Department Care Team (Late st Contact Info) Description 03/13/2025 Orders Only [facility] Interventional Radiology [address] [place] [id number] Jo Temple PA [address] [place] [address] Social History Tobacco Use Types Packs/Day Years [...] Info) Description 05/11/2025 2:00 PM EST Follow-Up [facility] [address] [place] [address] [phone] Feeder Switchboard Operator: Rachel Lomas NP [address] [place], [place] [phone] documented as of this encounter Goals Goal Patient Goal Type Associated Problems Recent Progress Patient-Stated? Author Autogenerat ed Goal Care Plan Autogenerated Problem No Val Herrera documented as of this encounter Visit Diagnoses Not on filedocumented in this encounter Additional Health Concerns Active Problems Noted Date Diagnosed Date Autogenerated Problem 02/10/2025 documented as of this encounter Care Teams Social Services Assistant Relationship Specialty Start Date End Date Chandu Carlos [address] [place] [phone] PCP - General Family Medicine 03/11/25 documented as of this encounter
--- OUTSIDE RECORDS SUMMARY | 2025-04-15 19:49 | XMS_ITS | Encounter Summary ---
Author Organization [facility] Address [address] [place] [address] Care Team Providers Care Security Installation Technician Name Role Phone CarlosChandu Primary Care Provider [phone] Reason for Visit * Reason Onset Date Comments Advice Only 03/16/[address] Beryl boucher, PCP office requesting clinical notes from visit on 03/03 Encounter Details Date Type Department Care Team (Late st Contact Info) Description 03/16/2025 Telephone [facility] 5th Floor [address] [place], [place] [phone] Siddhartha Newman MD [address] [place] [address] Hematology/[place] [address] Advice Only (PT of Dr. Newman, PCP office requesting clinical notes from visit on 03/03) Social History Tobacco Use Types Packs/Day Years [...] PM EDT documented as of this encounter Miscellaneous Notes * Telephone Encounter - Katie Ward - 03/16/2025 2:51 PM EDT PT of Dr. Newman, PCP office requesting clinical notes from visit on 03/03. lre# [phone] documented in this encounter Plan of Treatment Upcoming Encounters Date Type Department Care Team (Late st Contact Info) Description 05/11/2025 2:00 PM EST Follow-Up [facility] [address] [place] [address] [employer] Senior Officer: Rachel Lomas, CERTIFIED HEARING INSTRUMENT DISPENSER [address] [place] [address] documented as of this encounter Goals Goal Patient Goal Type Associated Problems Recent Progress Patient-Stated? Author Autogenerat ed Goal Care Plan Autogenerated Problem No Val Herrera documented as of this encounter Visit Diagnoses Not on filedocumented in this encounter Additional Health Concerns Active Problems Noted Date Diagnosed Date Autogenerated Problem 02/10/2025 documented as of this encounter Care Teams Security Installation Technician Relationship Specialty Start Date End Date Chandu Carlos [address] [place] [address] PCP - General Family Medicine 03/11/25 documented as of this encounter
== END 2025-04-15 17:08 | disposition short-term general hospital (02) ==
PROVIDERS: Emergency Provider Emergency Medicine
DX: C18.9 Malignant neoplasm of colon, unspecified (principal); R10.9 Unspecified abdominal pain
CPT/HCPCS: 36415; 74177; 80048; 80076; 81003; 83690; 84702; 85025; 99285; Q9967

== ENCOUNTER → 2025-04-15 09:39 | Outpatient (BNV) | payer OTHER, SELFPAY | PROVIDERS: Emergency Provider Emergency Medicine; Visit Provider Radiology Diagnostic Radiology | DX: R19.00 Intra-abdominal and pelvic swelling, mass and lump, unspecified site (principal) | CPT/HCPCS: 74177 ==